=== PATIENT | female | born 1960 | race Caucasian/White ===

== ENCOUNTER 2020-10-08 09:25 | Outpatient (REF) | payer MEDICAID, SELFPAY ==
[2020-10-08 11:01] LABS: MANUAL DIFF FLAG NO
[2020-10-08 11:16] LABS: Basophils Absolute Auto 0.1 X10*3/uL (0.0-0.2); Basophils Percent Auto 1.5 % (0-2); Eosinophils Absolute Auto 0.2 X10*3/uL (0.0-0.4); Eosinophils Percent Auto 4.3 % (0-4); Hematocrit 44.2 % (37-47); Hemoglobin 14.4 g/dl (12.0-16.0); Imm Gran Abs Auto 0.02 X10*3/uL (0.00-0.03); Imm Gran Pct Auto 0.4 % (0.0-0.4); Lymphocytes Absolute Auto 1.1 X10*3/uL (1.2-4.9); Lymphocytes Percent Auto 23.1 % (20-40); Mean Corpuscular HGB Conc 32.6 g/dl (31.0-35.0); Mean Corpuscular Hemoglobin 28.5 pg (27.0-33.0); Mean Corpuscular Volume 87.5 fL (80-98); Mean Platelet Volume 10.1 fL (9.4-12.3); Monocytes Absolute Auto 0.4 X10*3/uL (0.1-1.2); Monocytes Percent Auto 8.3 % (2-11); Neutrophils Absolute Auto 2.9 X10*3/uL (2.0-8.3); Neutrophils Percent Auto 62.4 % (45-73); Platelet Count 279 X10*3/uL (160-400); Red Blood Count 5.05 X10*6/uL (4.20-5.50); Red Cell Distribution Width 13.7 % (11.0-16.0); White Blood Count 4.7 X10*3/uL (4.8-10.8)
[2020-10-08 11:20] LABS: INTERNATIONAL NORM RATIO 0.9 (0.9-1.1); Prothrombin Time 10.5 SEC (9.9-13.0)
[2020-10-08 11:23] LABS: Partial Thromboplastin Time 34.5 SEC (24.1-38.0)
[2020-10-08 11:37] LABS: Alanine Aminotransferase 22 U/L (0-31); Albumin Level 4.6 g/dL (3.5-5.0); Alkaline Phosphatase 67 U/L (39-117); Anion Gap 13 (12-20); Aspartate Amino Transferase 18 U/L (5-31); Bilirubin Total 0.4 mg/dL (0.0-1.0); Blood Urea Nitrogen 13 mg/dL (9-16); Calcium 9.7 mg/dL (8.4-10.2); Carbon Dioxide 27 mmol/L (22-29); Chloride 107 mmol/L (96-108); Estimated Glomerular Filt Rate > 60; Glucose Random 89 mg/dL (60-115); Sodium 142 mmol/L (135-145); Total Protein 7.2 g/dL (6.5-8.0)
[2020-10-08 11:56] LABS: TSH reflex Free T4 0.58 uIU/mL (0.32-4.0)
== END 2020-10-08 09:26 | disposition home or self-care (01) ==
LOC: HO.HMGCLDS 09:25
PROVIDERS: PCP Internal Medicine; Visit Provider Internal Medicine
DX: Z01.818 Encounter for other preprocedural examination (principal); I10 Essential (primary) hypertension; J44.9 Chronic obstructive pulmonary disease, unspecified; E03.8 Other specified hypothyroidism; Z85.038 Personal history of other malignant neoplasm of large intestine; Z96.642 Presence of left artificial hip joint
CPT/HCPCS: 36415; 80053; 82378; 84443; 85025; 85610; 85730

== ENCOUNTER 2021-04-03 13:30 | Outpatient (REF) | payer MEDICAID, SELFPAY ==
[2021-04-03 16:54] LABS: Alanine Aminotransferase 25 U/L (0-31); Albumin Level 4.7 g/dL (3.5-5.0); Alkaline Phosphatase 67 U/L (39-117); Anion Gap 12 (12-20); Aspartate Amino Transferase 22 U/L (5-31); Bilirubin Total 0.3 mg/dL (0.0-1.0); Blood Urea Nitrogen 11 mg/dL (9-16); Carbon Dioxide 30 mmol/L (22-29); Chloride 103 mmol/L (96-108); Estimated Glomerular Filt Rate > 60; Glucose Random 91 mg/dL (60-115); Potassium 3.9 mmol/L (3.3-5.1); Sodium 141 mmol/L (135-145); Total Protein 7.4 g/dL (6.5-8.0)
[2021-04-03 17:14] LABS: TSH reflex Free T4 1.83 uIU/mL (0.32-4.0)
[2021-04-04 08:21] LABS: LDL Cholesterol Direct 111 mg/dL (<100)
== END 2021-04-03 13:31 | disposition home or self-care (01) ==
LOC: HO.HMGCLDS 13:30
PROVIDERS: Visit Provider Internal Medicine
DX: Z00.01 Encounter for general adult medical examination with abnormal findings (principal); E03.8 Other specified hypothyroidism; F32.1 Major depressive disorder, single episode, moderate; I10 Essential (primary) hypertension; J44.9 Chronic obstructive pulmonary disease, unspecified
CPT/HCPCS: 36415; 80053; 83721; 84443

== ENCOUNTER 2021-09-27 09:04 | Outpatient (REF) | payer MEDICAID, SELFPAY ==
--- NOTE | ~2021-09-27 | XR_ITS ---
EXAMINATION: XR RIGHT SHOULDER AND RIGHT FOOT CLINICAL INFORMATION: Pain. COMPARISON: None TECHNIQUE: Right shoulder 4 views. Right foot 3 views. FINDINGS: Right Shoulder: The glenohumeral and AC joint spaces are maintained normal. There is no visible acute fracture, dislocation or subluxation seen. There is mild hypertrophic changes of the AC joint. No bony erosive changes. There is small superior acromial enthesophyte. The soft tissues are normal. Right Foot: There is no visible acute fracture, dislocation or subluxation. No bony erosive changes seen. The ankle mortise and subtalar joints are normal. XR/XR shoulder RT min 2V IMPRESSION: Small superior acromial enthesophyte. Mild hypertrophic changes of the right AC joint. No visible acute fracture or dislocation of right shoulder. Unremarkable right foot exam.
--- NOTE | ~2021-09-27 | XR_ITS ---
EXAMINATION: XR RIGHT SHOULDER AND RIGHT FOOT CLINICAL INFORMATION: Pain. COMPARISON: None TECHNIQUE: Right shoulder 4 views. Right foot 3 views. FINDINGS: Right Shoulder: The glenohumeral and AC joint spaces are maintained normal. There is no visible acute fracture, dislocation or subluxation seen. There is mild hypertrophic changes of the AC joint. No bony erosive changes. There is small superior acromial enthesophyte. The soft tissues are normal. Right Foot: There is no visible acute fracture, dislocation or subluxation. No bony erosive changes seen. The ankle mortise and subtalar joints are normal. XR/XR foot RT min 3V IMPRESSION: Small superior acromial enthesophyte. Mild hypertrophic changes of the right AC joint. No visible acute fracture or dislocation of right shoulder. Unremarkable right foot exam.
== END 2021-09-27 09:05 | disposition home or self-care (01) ==
LOC: HO.HMGCX 09:04
PROVIDERS: PCP Internal Medicine; Visit Provider Internal Medicine
DX: M25.511 Pain in right shoulder (principal); M79.671 Pain in right foot; R29.91 Unspecified symptoms and signs involving the musculoskeletal system
CPT/HCPCS: 73030; 73630

== ENCOUNTER 2022-06-04 14:31 | Outpatient (REF) | payer MEDICAID, SELFPAY ==
[2022-06-04 16:39] LABS: MANUAL DIFF FLAG NO
[2022-06-04 16:43] LABS: Basophils Absolute Auto 0.1 X10*3/uL (0.0-0.2); Basophils Percent Auto 1.6 % (0-2); Eosinophils Absolute Auto 0.2 X10*3/uL (0.0-0.4); Eosinophils Percent Auto 5.1 % (0-4); Hematocrit 43.4 % (37.0-47.0); Hemoglobin 14.4 g/dl (12.0-16.0); Imm Gran Abs Auto 0.01 X10*3/uL (0.00-0.03); Imm Gran Pct Auto 0.2 % (0.0-0.4); Lymphocytes Absolute Auto 1.1 X10*3/uL (1.2-4.9); Lymphocytes Percent Auto 25.3 % (20-40); Mean Corpuscular HGB Conc 33.2 g/dl (31.0-35.0); Mean Corpuscular Hemoglobin 29.1 pg (27.0-33.0); Mean Corpuscular Volume 87.9 fL (80.0-98.0); Mean Platelet Volume 10.1 fL (9.4-12.3); Monocytes Absolute Auto 0.4 X10*3/uL (0.1-1.2); Monocytes Percent Auto 8.5 % (2-11); Neutrophils Absolute Auto 2.7 x10*3/uL (2.0-8.3); Neutrophils Percent Auto 59.3 % (45-73); Platelet Count 273 X10*3/uL (160-400); Red Blood Count 4.94 X10*6/uL (4.20-5.50); Red Cell Distribution Width 13.4 % (11.0-16.0); White Blood Count 4.5 X10*3/uL (4.8-10.8)
[2022-06-04 17:16] LABS: Alanine Aminotransferase 14 U/L (0-31); Albumin Level 4.4 g/dL (3.5-5.0); Alkaline Phosphatase 59 U/L (39-117); Anion Gap 13 (12-20); Aspartate Amino Transferase 17 U/L (5-31); Bilirubin Total 0.2 mg/dL (0.0-1.0); Blood Urea Nitrogen 8 mg/dL (9-16); Calcium 9.4 mg/dL (8.4-10.2); Carbon Dioxide 29 mmol/L (22-29); Chloride 104 mmol/L (96-108); Cholesterol 243 mg/dL; Estimated Glomerular Filt Rate > 60; Glucose Fasting 82 mg/dL (60-99); HDL Cholesterol 78 mg/dL; LDL Cholesterol Calculated 134 mg/dl; Sodium 142 mmol/L (135-145); Total Protein 6.5 g/dL (6.5-8.0); Triglycerides 158 mg/dL
[2022-06-04 17:31] LABS: TSH reflex Free T4 4.69 uIU/mL (0.32-4.0)
[2022-06-04 18:04] LABS: Free T4 (Free Thyroxine) 1.06 ng/dL (0.71-1.85)
== END 2022-06-04 14:32 | disposition home or self-care (01) ==
LOC: HO.HMGCLDS 14:31
PROVIDERS: PCP Internal Medicine; Visit Provider Internal Medicine
DX: I10 Essential (primary) hypertension (principal); J44.9 Chronic obstructive pulmonary disease, unspecified; E03.8 Other specified hypothyroidism; R15.9 Full incontinence of feces
CPT/HCPCS: 36415; 80053; 80061; 84439; 84443; 85025

== ENCOUNTER 2022-09-23 08:59 | Outpatient (AMB) | payer MEDICAID, SELFPAY ==
[2022-09-23 09:05] VITALS: BP 132/70; PULSE 70; O2SAT 95; BMI 24.9
--- NOTE | 2022-09-23 09:05 | A.OFFPC_ITS ---
Vital Signs 09/23/22 09:05 Height 5 ft 6 in Weight 154 lb 4 oz BMI 24.9 BP 132/70 Blood Pressure Location Lt brachial Position Sitting Pulse 70 Pulse Source Pulse Oximeter Pulse Oximetry (%) 95 Oxygen Delivery Method Room Air Intake Visit Reasons: 6 Month follow up Allergies phenobarbital [PHENOBARBITAL] Allergy (Unknown, Verified 09/23/22 09:06) RASH, hives, rash Medication List - Last Reconciled 09/23/22 by Mukund Hinton MD albuterol sulfate 90 mcg/actuation (ProAir HFA) 2 puffs inhalation Q6H PRN 30 days fluticasone furoate-vilanterol 200-25 mcg/dose (Breo Ellipta) 1 inh inhalation DAILY 90 days ibuprofen 200 mg PO Q6H PRN levothyroxine 125 mcg PO DAILY 90 days lisinopril 20 mg PO DAILY 90 days Tobacco use date assessed: 09/23/22 Fall risk assessment: No Falls in past year Last assessed Fall Risk: 09/23/22 Dental Screening Dental Screen Date: 09/23/22 Did you have a dental visit in the last 12 months?: No Did you have a dental problem in the last 6 months where you did not have access to dental care?: No Was dental information given to patient?: No HPI 6 Month follow up HPI Details Patient is 62-year-old female came in today for her six-month follow-up appointment Hypertension: she is taking lisinopril 20 mg, patient is tolerating medication , blood pressure is well controlled Hypothyroidism: Patient is on levothyroxine 112 mcg she is to continue that. Due for TSH Asthma/COPD: Stable with Breo inhaler History of rectal and cervical cancer status post chemotherapy and radiation therapy patient goes to Dr Beltran yearly for follow-up colonoscopies through them. Patient have chronic rectal incontinence if she has to go out she has to? stop eating for 48 hours and take 2 Imodium before which makes her disable? Follow-up 6 months Paperwork filled for her disability [facility] Medical History COPD (chronic obstructive pulmonary disease) Hypertension, essential Surgical History History of ileostomy History of left hip replacement History of resection of rectum History of surgery History of total hysterectomy Ovarian mass, left Family History Father No problems noted. Mother Lymphoma Sister No problems noted. Sister No problems noted. Son No problems noted. Daughter No problems noted. Daughter No problems noted. Other Substance use disorder Social History Housing: Other (mobile home) Patient Tobacco Use Status: Current everyday Tobacco user Cigarette Packs Per Day: 0.5 e-Cigarette/Vaping Use: Never Used service: No Current occupational status: retired Cognitive needs: No Hearing needs: No Vision needs: Yes Questionnaire PHQ-9 Over the last 2 weeks, how often have you been bothered by any of the following problems? 1. Little interest or pleasure in doing things: nearly every day 2. Feeling down, depressed, or hopeless: nearly every day 3. Trouble falling or staying asleep, or sleeping too much: more than half the days 4. Feeling tired or having little energy: nearly every day 5. Poor appetite or overeating: several days 6. Feeling bad about yourself - or that you are a failure or have let yourself or your family down: nearly every day 7. Trouble concentrating on things, such as reading the newspaper or watching television: nearly every day 8. Moving or speaking so slowly that other people could have noticed. Or the opposite - being so fidgety or restless that you have been moving around a lot more than usual: not at all 9. Thoughts that you would be better off or of hurting yourself in some way: not at all Total score: 18 Depression Screening Interpretation: Positive 53450 - PHQ-9 Billing: Yes Source: Developed by Drs. Cory Ochoa, Diya Alicia, Virgil Lion and colleagues, with an educational ara from [employer]. Thrive Questionnaire Date Thrive assessed: 09/23/22 I am a: Patient What is your living situation today?: I have a steady place to live Within the past 12 months, did the food you bought not last and you didn't have the money to get more?: Never true Within the past 12 months, did you worry whether your food would run out before you got money to buy more?: Never true Do you have trouble paying for medicines?: No Do you have trouble getting transportation to medical appointments?: No Do you have trouble paying your heating and electricity bill?: No Do you have trouble taking care of your child, family member or friend?: No Do you have trouble with day-to-day activities such as bathing, preparing meals, shopping, managing finances, etc.?: No Are you currently unemployed and looking for a job?: No Are you interested in more education?: No AUDIT C Alcohol Use Questionnaire (AUDIT-C) 1. How often do you have a drink containing alcohol?: Never 3. How often do you have six or more drinks on one occasion?: Never Total Score: 0 Score Reviewed/Action Taken: Yes ADAM-7 AMB Questionnaire ADAM-7 Date ADAM - 7 assessed: 09/23/22 Feeling nervous, anxious, or on edge: 1 = Several days Not being able to stop or control worryin = More than half the days Worrying too much about different things: 2 = More than half the days Trouble relaxin = Not at all Being so restless that it is hard to sit still: 0 = Not at all Becoming easily annoyed or irritable: 0 = Not at all Feeling afraid as if something awful might happen: 0 = Not at all Total ADAM-7 score (0-4 normal; 5-9 mild; 10-14 moderate; 15-21 severe): 5 Source: Developed by Drs. Cory Ochoa, Diya Alicia, Virgil Lion and colleagues, with an educational ara from [employer]. ADAM-7 Assessment Billing ADAM-7 Assessment Tool: ADAM-7 Assessment 76954 Review of Systems Const Denies chills and Denies fever(s) ENT Denies epistaxis and Denies nasal discharge Card Denies chest pain Resp Denies chest congestion, Denies cough and Denies hemoptysis GI Denies diarrhea and Denies nausea Skin/Breast Denies rash Neuro Reports no additional complaints Psych Reports no additional complaints Endo Reports no additional complaints Physical exam (Primary Care) Vital Signs: Last Vital Signs Pulse 70 09/23/22 09:05 BP 132/70 09/23/22 09:05 Pulse Ox 95 09/23/22 09:05 Oxygen Delivery Method Room Air 09/23/22 09:05 BMI result Body Mass Index 24.9 Tobacco/Smoking Status: Tobacco use Status Tobacco use date assessed 09/23/22 09/23/22 09:06 Patient Tobacco Use Status Current everyday Tobacco 09/23/22 09:06 e-Cigarette/Vaping Use Never Used 09/23/22 09:06 PHQ-9: PHQ-9 Score PHQ-9: Total score 18 09/23/22 09:49 Depression Screening Interpretation: Positive Thrive Assessment: Date of Thrive Assessment Date Thrive assessed 09/23/22 09/23/22 09:49 Const General: cooperative, comfortable and no acute distress Orientation/consciousness: patient oriented x3 HENMT Head: Yes normocephalic Eyes General: appearance normal, both eyes and all related structures Neck Neck: Yes supple Resp Effort & Inspection: normal respiratory effort, no cough and no stridor Cardio Rhythm: regular rhythm Heart sounds: S1 normal heart sound present and S2 normal heart sound present Skin General skin exam: turgor normal Neuro General: patient oriented x3, tone normal and moves all extremities Extrem Right lower extremity: no edema Left lower extremity: no edema Assessment and Plan Assessment & Plan (1) Hypertension, essential: Code(s): I10 - Essential (primary) hypertension (2) COPD (chronic obstructive pulmonary disease): Code(s): J44.9 - Chronic obstructive pulmonary disease, unspecified (3) Other specified hypothyroidism: Code(s): E03.8 - Other specified hypothyroidism (4) Rectal incontinence: Code(s): R15.9 - Full incontinence of feces (5) Anal sphincter incompetence: Code(s): 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 Due for TSH Asthma/COPD: Stable with Breo inhaler History of rectal and cervical cancer status post chemotherapy and radiation therapy patient goes to Dr Beltran yearly for follow-up colonoscopies through them. Patient have chronic rectal incontinence if she has to go out she has to? stop eating for 48 hours and take 2 Imodium before which makes her disable? Follow-up 6 months Paperwork filled for her disability Orders: Orders Comprehensive [place]. Panel Fast 6 Months E03.8 - Other specified hypothyroidism, I10 - Essential (primary) hypertension, J44.9 - Chronic obstructive pulmonary disease, unspecified, R15.9 - Full incontinence of feces TSH reflex Free T4 6 Months E03.8 - Other specified hypothyroidism, I10 - Essential (primary) hypertension, J44.9 - Chronic obstructive pulmonary disease, unspecified, R15.9 - Full incontinence of feces Complete Blood Count Auto Diff 6 Months E03.8 - Other specified hypothyroidism, I10 - Essential (primary) hypertension, J44.9 - Chronic obstructive pulmonary disease, unspecified, R15.9 - Full incontinence of feces Coding Level of Care Code Est Pt Level 4 (72113) Diagnoses Hypertension, essential I10 COPD (chronic obstructive pulmonary disease) J44.9 Other specified hypothyroidism E03.8 Rectal incontinence R15.9 Anal sphincter incompetence K62.89 Additional Codes ADAM-7 Assessment Billing - ADAM-7 Assessment Tool: ADAM-7 Assessment [id number] ([id number])
== END 2022-09-23 09:44 | disposition home or self-care (01) ==
PROVIDERS: PCP Internal Medicine; Visit Provider Internal Medicine
DX: I10 Essential (primary) hypertension (principal); J44.9 Chronic obstructive pulmonary disease, unspecified; E03.8 Other specified hypothyroidism; R15.9 Full incontinence of feces; K62.89 Other specified diseases of anus and rectum
CPT/HCPCS: 99214

== ENCOUNTER 2023-09-11 08:55 | Outpatient (REF) | payer MEDICARE, SELFPAY ==
[2023-09-11 10:01] LABS: MANUAL DIFF FLAG NO
[2023-09-11 10:18] LABS: Basophils Absolute Auto 0.1 X10*3/uL (0.0-0.2); Basophils Percent Auto 2.3 % (0-2); Eosinophils Absolute Auto 0.3 X10*3/uL (0.0-0.4); Eosinophils Percent Auto 7.2 % (0-4); Hematocrit 43.8 % (37.0-47.0); Hemoglobin 14.5 g/dl (12.0-16.0); Imm Gran Abs Auto 0.02 X10*3/uL (0.00-0.03); Imm Gran Pct Auto 0.5 % (0.0-0.4); Lymphocytes Absolute Auto 1.3 X10*3/uL (1.2-4.9); Mean Corpuscular HGB Conc 33.1 g/dl (31.0-35.0); Mean Corpuscular Hemoglobin 28.9 pg (27.0-33.0); Mean Corpuscular Volume 87.4 fL (80.0-98.0); Monocytes Absolute Auto 0.4 X10*3/uL (0.1-1.2); Monocytes Percent Auto 8.8 % (2-11); Neutrophils Absolute Auto 2.2 x10*3/uL (2.0-8.3); Neutrophils Percent Auto 51.2 % (45-73); Platelet Count 276 X10*3/uL (160-400); Red Blood Count 5.01 X10*6/uL (4.20-5.50); Red Cell Distribution Width 14.1 % (11.0-16.0); White Blood Count 4.3 X10*3/uL (4.8-10.8)
[2023-09-11 10:39] LABS: Alanine Aminotransferase 22 U/L (0-31); Albumin Level 4.5 g/dL (3.5-5.0); Alkaline Phosphatase 60 U/L (39-117); Anion Gap 11 (12-20); Aspartate Amino Transferase 19 U/L (5-31); Bilirubin Total 0.4 mg/dL (0.0-1.0); Blood Urea Nitrogen 12 mg/dL (9-16); Calcium 9.4 mg/dL (8.4-10.2); Carbon Dioxide 29 mmol/L (22-29); Chloride 106 mmol/L (96-108); Cholesterol 201 mg/dL (<200); Estimated Glomerular Filt Rate > 60; Glucose Fasting 97 mg/dL (60-99); HDL Cholesterol 89 mg/dL (>40); LDL Cholesterol Calculated 99 mg/dL (<100); Sodium 142 mmol/L (135-145); Total Protein 7.1 g/dL (6.5-8.0); Triglycerides 66 mg/dL (<150)
[2023-09-11 10:57] LABS: TSH reflex Free T4 1.24 uIU/mL (0.32-4.0)
== END 2023-09-11 08:56 | disposition home or self-care (01) ==
LOC: HO.HMGCLDS 08:55
PROVIDERS: PCP Internal Medicine; Visit Provider Internal Medicine
DX: I10 Essential (primary) hypertension (principal); J44.9 Chronic obstructive pulmonary disease, unspecified; E03.8 Other specified hypothyroidism; R15.9 Full incontinence of feces
CPT/HCPCS: 36415; 80053; 80061; 84443; 85025

== ENCOUNTER 2023-09-18 14:43 | Outpatient (AMB) | payer MEDICARE, SELFPAY ==
[2023-09-18 14:48] VITALS: BP 156/98; PULSE 79; O2SAT 96; BMI 25.0
--- NOTE | 2023-09-18 14:48 | MHC.PC.OV ---
Vital Signs 09/18/23 14:48 Height 5 ft 6 in Weight 155 lb BMI 25.0 BP 156/98 H Blood Pressure Location Lt brachial Position Sitting Pulse 79 Pulse Source Pulse Oximeter Pulse Oximetry (%) 96 Oxygen Delivery Method Room Air Intake Visit Reasons: follow up Allergies phenobarbital [PHENOBARBITAL] Allergy (Unknown, Verified 09/23/22 09:06) RASH, hives, rash Medication List - Last Reconciled 09/18/23 by Mukund Hinton MD albuterol sulfate 90 mcg/actuation 2 puffs inhalation Q6H PRN 30 days fluticasone furoate-vilanterol 200-25 mcg/dose (Breo Ellipta) 1 inh inhalation DAILY 90 days ibuprofen 200 mg PO Q6H PRN levothyroxine 125 mcg PO DAILY 90 days lisinopril 20 mg PO DAILY 90 days Tobacco use date assessed: 09/23/22 Dental Screening Dental Screen Date: 09/23/22 HPI follow up HPI Details Patient is 63-year-old female who was last seen September of last year came in today for follow-up appointment She is taking lisinopril 20 mg, blood pressure is 156/98 She is not monitoring blood pressure at home so I do not know what has been happening for the past 1 year Patient was advised to come in for follow-up appointments, 1 year is a very long time without monitoring the side effect of medication I am increasing the dose to 30 mg lisinopril She also continued to smoke 1 pack per day Patient is on Breo inhaler which is helping but not enough In the afternoon she tells me that she starts getting short of breath and then she has to use albuterol inhaler She is also requesting Chantix prescription which I have sent for her I am also adding Spiriva she is to start taking that And come in in 3 weeks for follow-up appointment on blood pressure as well as Chantix She want UA done today as patient feels as if she is developing a urinary tract infection UA is negative for UTI [facility] Medical History COPD (chronic obstructive pulmonary disease) Hypertension, essential Surgical History History of left hip replacement History of ileostomy History of resection of rectum History of surgery Ovarian mass, left History of total hysterectomy Family History Father No problems noted. Mother Lymphoma Sister No problems noted. Sister No problems noted. Son No problems noted. Daughter No problems noted. Daughter No problems noted. Other Substance use disorder Social History Housing: Other (mobile home) Patient Tobacco Use Status: Current everyday Tobacco user Cigarette Packs Per Day: 0.5 e-Cigarette/Vaping Use: Never Used service: No Current occupational status: retired Cognitive needs: No Hearing needs: No Vision needs: Yes Questionnaire Thrive Questionnaire Date Thrive assessed: 09/23/22 ADAM-7 AMB Questionnaire ADAM-7 Date ADAM - 7 assessed: 09/23/22 Source: Developed by Drs. Cory Ochoa, Diya Alicia, Virgil Lion and colleagues, with an educational ara from [email or web address]. Review of Systems Const Denies chills and Denies fever(s) ENT Denies epistaxis and Denies nasal discharge Card Denies chest pain Resp Denies hemoptysis GI Denies diarrhea and Denies nausea Skin/Breast Denies rash Neuro Reports no additional complaints Psych Reports no additional complaints Endo Reports no additional complaints Physical exam (Primary Care) Vital Signs: Last Vital Signs Pulse 79 09/18/23 14:48 BP 156/98 H 09/18/23 14:48 Pulse Ox 96 09/18/23 14:48 Oxygen Delivery Method Room Air 09/18/23 14:48 BMI result Body Mass Index 25.0 Tobacco/Smoking Status: Tobacco use Status Tobacco use date assessed 09/23/22 09/18/23 14:50 Patient Tobacco Use Status Current everyday Tobacco 09/18/23 14:50 e-Cigarette/Vaping Use Never Used 09/18/23 14:50 Thrive Assessment: Date of Thrive Assessment Date Thrive assessed 09/23/22 09/18/23 14:50 Const General: cooperative, comfortable and no acute distress Orientation/consciousness: patient oriented x3 HENMT Head: Yes normocephalic Eyes General: appearance normal, both eyes and all related structures Neck Neck: Yes supple Resp Effort & Inspection: normal respiratory effort, no cough and no stridor Cardio Rhythm: regular rhythm Heart sounds: S1 normal heart sound present and S2 normal heart sound present Skin General skin exam: turgor normal Neuro General: patient oriented x3, tone normal and moves all extremities Extrem Right lower extremity: no edema Left lower extremity: no edema Assessment and Plan Assessment & Plan (1) Shortness of breath: Code(s): R06.02 - Shortness of breath (2) Hypertension, essential: Code(s): I10 - Essential (primary) hypertension (3) COPD (chronic obstructive pulmonary disease): Code(s): J44.9 - Chronic obstructive pulmonary disease, unspecified Qualifiers: COPD type: unspecified COPD Qualified Code(s): J44.9 - Chronic obstructive pulmonary disease, unspecified (4) Dysuria: Code(s): R30.0 - Dysuria (5) Other specified hypothyroidism: Code(s): E03.8 - Other specified hypothyroidism (6) On Chantix therapy: Code(s): Z79.899 - Other terminal block assembler (current) drug therapy Plan Patient is 63-year-old female who was last seen September of last year came in today for follow-up appointment She is taking lisinopril 20 mg, blood pressure is 156/98 She is not monitoring blood pressure at home so I do not know what has been happening for the past 1 year Patient was advised to come in for follow-up appointments, 1 year is a very long time without monitoring the side effect of medication I am increasing the dose to 30 mg lisinopril She also continued to smoke 1 pack per day Patient is on Breo inhaler which is helping but not enough In the afternoon she tells me that she starts getting short of breath and then she has to use albuterol inhaler She is also requesting Chantix prescription which I have sent for her I am also adding Spiriva she is to start taking that And come in in 3 weeks for follow-up appointment on blood pressure as well as Chantix She want UA done today as patient feels as if she is developing a urinary tract infection UA is negative for UTI Medications: New tiotropium bromide 2.5 mcg/actuation (Spiriva Respimat) 2 inhalations inhalation QAM 4 grams 0RF varenicline (Chantix Starting Month Box) PO PER PKG DIR 53 ea 0RF Changed From lisinopril 20 mg PO DAILY 90 days 90 tabs 0RF To lisinopril 30 mg PO DAILY 90 tabs 0RF 90 days Coding Level of Care Code Est Pt Level 4 (06699) Complex EM visit Add On G2211 Diagnoses Shortness of breath R06.02 Hypertension, essential I10 Chronic obstructive pulmonary disease, unspecified COPD type J44.9 COPD type: unspecified COPD Dysuria R30.0 Other specified hypothyroidism E03.8 On Chantix therapy Z79.899
== END 2023-09-18 15:25 | disposition home or self-care (01) ==
PROVIDERS: PCP Internal Medicine; Visit Provider Internal Medicine
DX: R06.02 Shortness of breath (principal); I10 Essential (primary) hypertension; J44.9 Chronic obstructive pulmonary disease, unspecified; R30.0 Dysuria; E03.8 Other specified hypothyroidism; Z79.899 Other long term (current) drug therapy
CPT/HCPCS: 99214; G2211

== ENCOUNTER 2023-10-16 12:37 | Outpatient (AMB) | payer MEDICARE, SELFPAY ==
[2023-10-16 12:44] VITALS: BP 126/78; PULSE 72; O2SAT 98; BMI 25.5
--- NOTE | 2023-10-16 12:44 | MHC.PC.OV ---
Vital Signs 10/16/23 12:44 Height 5 ft 6 in Weight 158 lb 2 oz BMI 25.5 BP 126/78 Blood Pressure Location Lt brachial Position Sitting Pulse 72 Pulse Source Pulse Oximeter Pulse Oximetry (%) 98 Oxygen Delivery Method Room Air Intake Visit Reasons: FollowUp Allergies phenobarbital [PHENOBARBITAL] Allergy (Unknown, Verified 10/16/23 12:48) RASH, hives, rash Medication List - Last Reconciled 10/16/23 by Mukund Hinton MD albuterol sulfate 90 mcg/actuation 2 puffs inhalation Q6H PRN 30 days fluticasone furoate-vilanterol 200-25 mcg/dose (Breo Ellipta) 1 inh inhalation DAILY 90 days ibuprofen 200 mg PO Q6H PRN levothyroxine 125 mcg PO DAILY 90 days lisinopril 30 mg PO DAILY 90 days umeclidinium 62.5 mcg/actuation (Incruse Ellipta) 1 inh inhalation BEDTIME Tobacco use date assessed: 10/16/23 Fall risk assessment: No Falls in past year Last assessed Fall Risk: 10/16/23 Dental Screening Dental Screen Date: 10/16/23 Did you have a dental visit in the last 12 months?: Yes Did you have a dental problem in the last 6 months where you did not have access to dental care?: No Was dental information given to patient?: Patient has dentist HPI FollowUp HPI Details Patient came in today for follow-up appointment She is feeling much better with Breo and Incruse Ellipta combination Her breathing is more free, no more wheezing She tried Chantix but could not tolerate it due to side effects of flu-like feeling and abdominal symptoms So she stopped it But she is down to 3 cigarettes and she will continue to work on that Patient has a history of colon resection and after that she has developed recurrent diarrhea She had to stop working, she is on disability, she brought in her paperwork to fill for that which I did. With increased dose of lisinopril her blood pressure is very well-controlled she is tolerating medication Labs done recently reviewed as well She will return in 4 months for follow-up appointment [facility] Medical History COPD (chronic obstructive pulmonary disease) Hypertension, essential Surgical History History of left hip replacement History of ileostomy History of resection of rectum History of surgery Ovarian mass, left History of total hysterectomy Family History Father No problems noted. Mother Lymphoma Sister No problems noted. Sister No problems noted. Son No problems noted. Daughter No problems noted. Daughter No problems noted. Other Substance use disorder Social History Housing: Other (mobile home) Patient Tobacco Use Status: Current someday Tobacco user Cigarette Packs Per Day: 0.5 e-Cigarette/Vaping Use: Never Used service: No Current occupational status: retired Cognitive needs: No Hearing needs: No Vision needs: Yes Questionnaire Thrive Questionnaire Date Thrive assessed: 10/16/23 I am a: Patient What is your living situation today?: I have a steady place to live Within the past 12 months, did the food you bought not last and you didn't have the money to get more?: Never true Within the past 12 months, did you worry whether your food would run out before you got money to buy more?: Never true Do you have trouble paying for medicines?: No Do you have trouble getting transportation to medical appointments?: No Do you have trouble paying your heating and electricity bill?: No Do you have trouble taking care of your child, family member or friend?: No Do you have trouble with day-to-day activities such as bathing, preparing meals, shopping, managing finances, etc.?: No Are you currently unemployed and looking for a job?: No Are you interested in more education?: No Currently or been in a relationship where the following occur: No concerns reported THRIVE Score: 0 AUDIT C Alcohol Use Questionnaire (AUDIT-C) 1. How often do you have a drink containing alcohol?: Monthly or less 2. How many drinks containing alcohol do you have on a typical day when you are drinking?: 1 or 2 3. How often do you have six or more drinks on one occasion?: Never Total Score: 1 Score Reviewed/Action Taken: Yes ADAM-7 AMB Questionnaire ADAM-7 Date ADAM - 7 assessed: 10/16/23 Feeling nervous, anxious, or on edge: 0 = Not at all Not being able to stop or control worryin = Not at all Worrying too much about different things: 0 = Not at all Trouble relaxin = Not at all Being so restless that it is hard to sit still: 0 = Not at all Becoming easily annoyed or irritable: 0 = Not at all Feeling afraid as if something awful might happen: 0 = Not at all Total ADAM-7 score (0-4 normal; 5-9 mild; 10-14 moderate; 15-21 severe): 0 Source: Developed by Drs. Cory Ochoa, Diya Alicia, Virgil Lion and colleagues, with an educational ara from [employer]. ADAM-7 Assessment Billing ADAM-7 Assessment Tool: ADAM-7 Assessment 00740 Review of Systems Const Denies chills and Denies fever(s) ENT Denies epistaxis and Denies nasal discharge Card Denies chest pain Resp Denies chest congestion, Denies cough and Denies hemoptysis GI Denies diarrhea and Denies nausea Skin/Breast Denies rash Neuro Reports no additional complaints Psych Reports no additional complaints Endo Reports no additional complaints Physical exam (Primary Care) Vital Signs: Last Vital Signs Pulse 72 10/16/23 12:44 BP 126/78 10/16/23 12:44 Pulse Ox 98 10/16/23 12:44 Oxygen Delivery Method Room Air 10/16/23 12:44 BMI result Body Mass Index 25.5 Tobacco/Smoking Status: Tobacco use Status Tobacco use date assessed 10/16/23 10/16/23 12:49 Patient Tobacco Use Status Current someday Tobacco 10/16/23 12:49 e-Cigarette/Vaping Use Never Used 10/16/23 12:49 Thrive Assessment: Date of Thrive Assessment Date Thrive assessed 10/16/23 10/16/23 12:49 Currently or been in a relationship where the following occur: No concerns reported Const General: cooperative, comfortable and no acute distress Orientation/consciousness: patient oriented x3 HENMT Head: Yes normocephalic Eyes General: appearance normal, both eyes and all related structures Neck Neck: Yes supple Resp Effort & Inspection: normal respiratory effort, no cough and no stridor Cardio Rhythm: regular rhythm Heart sounds: S1 normal heart sound present and S2 normal heart sound present Skin General skin exam: turgor normal Neuro General: patient oriented x3, tone normal and moves all extremities Extrem Right lower extremity: no edema Left lower extremity: no edema Assessment and Plan Assessment & Plan (1) Hypertension, essential: Code(s): I10 - Essential (primary) hypertension (2) COPD (chronic obstructive pulmonary disease): Code(s): J44.9 - Chronic obstructive pulmonary disease, unspecified Qualifiers: COPD type: unspecified COPD Qualified Code(s): J44.9 - Chronic obstructive pulmonary disease, unspecified (3) Other specified hypothyroidism: Code(s): E03.8 - Other specified hypothyroidism (4) Rectal incontinence: Code(s): R15.9 - Full incontinence of feces Qualifiers: Fecal incontinence type: fecal smearing Qualified Code(s): R15.1 - Fecal smearing Plan Patient came in today for follow-up appointment She is feeling much better with Breo and Incruse Ellipta combination Her breathing is more free, no more wheezing She tried Chantix but could not tolerate it due to side effects of flu-like feeling and abdominal symptoms So she stopped it But she is down to 3 cigarettes and she will continue to work on that Patient has a history of colon resection and after that she has developed recurrent diarrhea She had to stop working, she is on disability, she brought in her paperwork to fill for that which I did. With increased dose of lisinopril her blood pressure is very well-controlled she is tolerating medication Labs done recently reviewed as well She will return in 4 months for follow-up appointment Coding Level of Care Code Est Pt Level 4 (05470) Diagnoses Hypertension, essential I10 Chronic obstructive pulmonary disease, unspecified COPD type J44.9 COPD type: unspecified COPD Other specified hypothyroidism E03.8 Fecal smearing R15.1 Fecal incontinence type: fecal smearing Additional Codes ADAM-7 Assessment Billing - ADAM-7 Assessment Tool: ADAM-7 Assessment 09039 ([id number])
== END 2023-10-16 13:49 | disposition home or self-care (01) ==
PROVIDERS: PCP Internal Medicine; Visit Provider Internal Medicine
DX: I10 Essential (primary) hypertension (principal); J44.9 Chronic obstructive pulmonary disease, unspecified; E03.8 Other specified hypothyroidism; R15.1 Fecal smearing
CPT/HCPCS: 99214

== ENCOUNTER 2024-04-05 13:35 | Outpatient (REF) | payer MEDICARE, SELFPAY ==
[2024-04-05 16:10] LABS: MANUAL DIFF FLAG NO
[2024-04-05 16:15] LABS: Basophils Absolute Auto 0.1 X10*3/uL (0.0-0.2); Basophils Percent Auto 2.1 % (0-2); Eosinophils Absolute Auto 0.3 X10*3/uL (0.0-0.4); Eosinophils Percent Auto 4.3 % (0-4); Hematocrit 44.3 % (37.0-47.0); Hemoglobin 14.9 g/dl (12.0-16.0); Imm Gran Abs Auto 0.03 X10*3/uL (0.00-0.03); Imm Gran Pct Auto 0.5 % (0.0-0.4); Lymphocytes Absolute Auto 1.5 X10*3/uL (1.2-4.9); Lymphocytes Percent Auto 26.4 % (20-40); Mean Corpuscular HGB Conc 33.6 g/dl (31.0-35.0); Mean Corpuscular Hemoglobin 29.2 pg (27.0-33.0); Mean Corpuscular Volume 86.7 fL (80.0-98.0); Mean Platelet Volume 9.9 fL (9.4-12.3); Monocytes Absolute Auto 0.5 X10*3/uL (0.1-1.2); Monocytes Percent Auto 9.1 % (2-11); Neutrophils Absolute Auto 3.3 x10*3/uL (2.0-8.3); Neutrophils Percent Auto 57.6 % (45-73); Platelet Count 305 X10*3/uL (160-400); Red Blood Count 5.11 X10*6/uL (4.20-5.50); Red Cell Distribution Width 13.7 % (11.0-16.0); White Blood Count 5.8 X10*3/uL (4.8-10.8)
[2024-04-05 17:21] LABS: Alanine Aminotransferase 31 U/L (0-31); Albumin Level 4.4 g/dL (3.5-5.0); Alkaline Phosphatase 66 U/L (39-117); Anion Gap 13 (12-20); Aspartate Amino Transferase 26 U/L (5-31); Bilirubin Total 0.3 mg/dL (0.0-1.0); Blood Urea Nitrogen 12 mg/dL (9-16); Calcium 9.4 mg/dL (8.4-10.2); Carbon Dioxide 26 mmol/L (22-29); Chloride 107 mmol/L (96-108); Estimated Glomerular Filt Rate > 60; Glucose Random 80 mg/dL (60-115); Magnesium 2.5 mg/dL (1.6-2.6); Sodium 142 mmol/L (135-145); TSH reflex Free T4 0.79 uIU/mL (0.32-4.0); Total Protein 7.6 g/dL (6.5-8.0); Vitamin B12 376 pg/mL (200-900)
[2024-04-06 15:08] LABS: LDL Cholesterol Direct 114 mg/dL (<100)
[2024-04-09 01:54] LABS: Vitamin D 25-OH, D2 <4 ng/mL; Vitamin D 25-OH, D3 19 ng/mL; Vitamin D 25-OH, Total 19 ng/mL (30-100)
== END 2024-04-05 13:36 | disposition home or self-care (01) ==
LOC: HO.HMGCLDS 13:35
PROVIDERS: PCP Internal Medicine; Visit Provider Internal Medicine
DX: F32.1 Major depressive disorder, single episode, moderate (principal); I10 Essential (primary) hypertension; J44.9 Chronic obstructive pulmonary disease, unspecified; E03.8 Other specified hypothyroidism; K21.9 Gastro-esophageal reflux disease without esophagitis; Z72.0 Tobacco use; Z71.6 Tobacco abuse counseling; Z79.899 Other long term (current) drug therapy
CPT/HCPCS: 36415; 80053; 82306; 82607; 83721; 83735; 84443; 85025; 99212

== ENCOUNTER 2024-04-05 13:35 | Outpatient (AMB) | payer MEDICARE, SELFPAY ==
[2024-04-05 13:36] VITALS: BP 128/78; PULSE 67; RESP 16; O2SAT 96; BMI 26.8
--- NOTE | 2024-04-05 13:36 | A.OFFPC_ITS ---
Vital Signs 04/05/24 13:36 Height 5 ft 6 in Weight 166 lb BMI 26.8 BP 128/78 Blood Pressure Location Rt brachial Position Sitting Respiration 16 Pulse 67 Pulse Source Pulse Oximeter Pulse Oximetry (%) 96 Oxygen Delivery Method Room Air Intake Visit Reasons: Medication refill Allergies phenobarbital [PHENOBARBITAL] Allergy (Unknown, Verified 04/05/24 13:36) RASH, hives, rash Medication List - Last Reconciled 04/05/24 by Mukund Hinton MD albuterol sulfate 90 mcg/actuation 2 puffs inhalation Q6H PRN 30 days fluticasone furoate-vilanterol 200-25 mcg/dose (Breo Ellipta) 1 inh inhalation DAILY 90 days ibuprofen 200 mg PO Q6H PRN levothyroxine 125 mcg PO DAILY 90 days lisinopril 30 mg PO DAILY 90 days omeprazole 20 mg PO DAILY umeclidinium 62.5 mcg/actuation (Incruse Ellipta) 1 inh inhalation BEDTIME Tobacco use date assessed: 04/05/24 Fall risk assessment: No Falls in past year Last assessed Fall Risk: 04/05/24 Dental Screening Dental Screen Date: 04/05/24 Did you have a dental visit in the last 12 months?: Yes Did you have a dental problem in the last 6 months where you did not have access to dental care?: No Was dental information given to patient?: Patient has dentist HPI Medication refill HPI Details History - The patient is a 63-year-old female pr esenting with medication management concerns and depressive symptoms. She voiced issues regarding her inhalers for COPD, expressing that the m edication was not effective, and explained her misunderstanding regarding the use of multiple inhalers. Her prescribed Breo had not been utilized as directed. She is supposed to be on Breo once a day and Incruse Ellipta once a day, explained to her why she is taking 2 inhalers Hypertension: Blood pressure is stable patient is taking lisinopril 30 mg tolerating medication no side effects - Depression was characterized by notabl e changes in interest and motivation, impacting activities she previously found enjoyable and urgent concerns from her family prompted further exploration of her mood changes. Patient is interested in starting medication, Lexapro 10 mg sent patient is to start with half a tablet for a week and then full tablet We will set up telemedicine visit in 1 month to follow up on that - The last laboratory tests were conduct ed in September, showing acceptable parameters, due for labs to be done today GERD is stable with omeprazole Continued to smoke half a pack per day once again patient was instructed to stop as soon as possible and if she needs assistance she is to let me know Hypothyroidism: Continue levothyroxine 125 mcg Problem List - Chronic Obstructive Pulmonary Disease (COPD) - Essential Hypertension - Gastroesophageal Reflux Disease - Hypothyroidism - Depression Patient Instructions - Use both inhalers as prescribed [facility], as they contain different medicines that can work effectively together. - Continue to use the rescue inhaler as needed for acute symptoms. - Keep taking levothyroxine, lisinopril, and omeprazole as prescribed. - Follow the instructions to set up an [employer] patient portal for better communication and access to health records. - Make sure to have blood work done as s oon as possible - Begin the prescribed medication for de pression and monitor for improved mood and increased activity engagement. - I will follow up in four weeks with a telephone visit to review progress and any concerns regarding the new medication. Review of Systems - Neurological: No headaches no dizziness - Ear nose throat: No sore throat no hearing difficulty no ear pain - Cardiovascular: No syncope, no chest pain, no palpitations - Gastrointestinal: No nausea vomiting or diarrhea - Endocrine: No polyuria polydipsia no heat intolerance - Genitourinary: No dysuria , no blood in urine Physical Exam - General: No acute distress - HEENT: No acute findings - Neck: Supple - Respiratory system: Able to talk in f ull sentences, no audible wheeze - cardiovascular: S1-S2 regular in rat e and rhythm - Gastrointestinal: No pain - Extremities: No new findings - SENIOR STATISTICIAN: Alert awake oriented x3 motor se nsory intact - Skin: Normal turgor [facility] Medical History COPD (chronic obstructive pulmonary disease) Hypertension, essential Surgical History History of left hip replacement History of ileostomy History of resection of rectum History of surgery Ovarian mass, left History of total hysterectomy Family History Father No problems noted. Mother Lymphoma Sister No problems noted. Sister No problems noted. Son No problems noted. Daughter No problems noted. Daughter No problems noted. Other Substance use disorder Social History Housing: Other (mobile home) Patient Tobacco Use Status: Current someday Tobacco user Cigarette Packs Per Day: 0.5 e-Cigarette/Vaping Use: Never Used service: No Current occupational status: retired Cognitive needs: No Hearing needs: No Vision needs: Yes Questionnaire Thrive Questionnaire Date Thrive assessed: 10/16/23 ADAM-7 AMB Questionnaire ADAM-7 Date ADAM - 7 assessed: 10/16/23 Source: Developed by Drs. Cory Ochoa, Diya Alicia, Virgil Lion and colleagues, with an educational ara from [employer]. Physical exam (Primary Care) Vital Signs: Last Vital Signs Pulse 67 04/05/24 13:36 Resp 16 04/05/24 13:36 BP 128/78 04/05/24 13:36 Pulse Ox 96 04/05/24 13:36 Oxygen Delivery Method Room Air 04/05/24 13:36 BMI result Body Mass Index 26.8 Tobacco/Smoking Status: Tobacco use Status Tobacco use date assessed 04/05/24 04/05/24 13:43 Patient Tobacco Use Status Current someday Tobacco 04/05/24 13:43 e-Cigarette/Vaping Use Never Used 04/05/24 13:43 Are you ready to quit: No Tobacco cessation counseling provided: Yes Relapse Prevention: discussed the importance of a supportive environment CPT code: 17392 - 4-10 Minutes Thrive Assessment: Date of Thrive Assessment Date Thrive assessed 10/16/23 04/05/24 13:43 Coding Level of Care Code Est Pt Level 4 (84382) Complex EM visit Add On G2211 Diagnoses Depression, major, single episode, moderate F32.1 Hypertension, essential I10 Chronic obstructive pulmonary disease, unspecified COPD type J44.9 COPD type: unspecified COPD Other specified hypothyroidism E03.8 Chronic GERD K21.9 Tobacco abuse Z72.0 Tobacco abuse counseling Z71.6 Additional Codes Vital Signs *Quality* - CPT code: 31248 - 4-10 Minutes ([id number]) Assessment & Plan Assessment & Plan (1) Depression, major, single episode, moderate: Code(s): F32.1 - Major depressive disorder, single episode, moderate Category: Medical (2) Hypertension, essential: Code(s): I10 - Essential (primary) hypertension Category: Medical (3) COPD (chronic obstructive pulmonary disease): Code(s): J44.9 - Chronic obstructive pulmonary disease, unspecified Category: Medical Qualifiers: COPD type: unspecified COPD Qualified Code(s): J44.9 - Chronic obstructive pulmonary disease, unspecified (4) Other specified hypothyroidism: Code(s): E03.8 - Other specified hypothyroidism Category: Medical (5) Chronic GERD: Code(s): K21.9 - Gastro-esophageal reflux disease without esophagitis Category: Medical (6) Tobacco abuse: Code(s): Z72.0 - Tobacco use Category: Medical (7) Tobacco abuse counseling: Code(s): Z71.6 - Tobacco abuse counseling Category: Medical Plan History - The patient is a 63-year-old female presenting with medication management concerns and depressive symptoms. She voiced issues regarding her inhalers for COPD, expressing that the medication was not effective, and explained her misunderstanding regarding the use of multiple inhalers. Her prescribed Breo had not been utilized as directed. She is supposed to be on Breo once a day and Incruse Ellipta once a day, explained to her why she is taking 2 inhalers Hypertension: Blood pressure is stable patient is taking lisinopril 30 mg tolerating medication no side effects - Depression was characterized by notable changes in interest and motivation, impacting activities she previously found enjoyable and urgent concerns from her family prompted further exploration of her mood changes. Patient is interested in starting medication, Lexapro 10 mg sent patient is to start with half a tablet for a week and then full tablet We will set up telemedicine visit in 1 month to follow up on that - The last laboratory tests were conducted in September, showing acceptable parameters, due for labs to be done today GERD is stable with omeprazole Continued to smoke half a pack per day once again patient was instructed to stop as soon as possible and if she needs assistance she is to let me know Hypothyroidism: Continue levothyroxine 125 mcg Problem List - Chronic Obstructive Pulmonary Disease (COPD) - Essential Hypertension - Gastroesophageal Reflux Disease - Hypothyroidism - Depression Patient Instructions - Use both inhalers as prescribed together, as they contain different medicines that can work effectively together. - Continue to use the rescue inhaler as needed for acute symptoms. - Keep taking levothyroxine, lisinopril, and omeprazole as prescribed. - Follow the instructions to set up an online patient portal for better communication and access to health records. - Make sure to have blood work done as soon as possible - Begin the prescribed medication for depression and monitor for improved mood and increased activity engagement. - I will follow up in four weeks with a telephone visit to review progress and any concerns regarding the new medication. Orders: Orders Comprehensive Met. Panel Today E03.8 - Other specified hypothyroidism, F32.1 - Major depressive disorder, single episode, moderate, I10 - Essential (primary) hypertension, J44.9 - Chronic obstructive pulmonary disease, unspecified Magnesium Today E03.8 - Other specified hypothyroidism, F32.1 - Major depressive disorder, single episode, moderate, I10 - Essential (primary) hypertension, J44.9 - Chronic obstructive pulmonary disease, unspecified Complete Blood Count Auto Diff Today E03.8 - Other specified hypothyroidism, F32.1 - Major depressive disorder, single episode, moderate, I10 - Essential (primary) hypertension, J44.9 - Chronic obstructive pulmonary disease, unspecified LDL Cholesterol Direct Today E03.8 - Other specified hypothyroidism, F32.1 - Major depressive disorder, single episode, moderate, I10 - Essential (primary) hypertension, J44.9 - Chronic obstructive pulmonary disease, unspecified TSH reflex Free T4 Today E03.8 - Other specified hypothyroidism, F32.1 - Major depressive disorder, single episode, moderate, I10 - Essential (primary) hypertension, J44.9 - Chronic obstructive pulmonary disease, unspecified Vitamin D 25-OH (D2 and D3) Today E03.8 - Other specified hypothyroidism, F32.1 - Major depressive disorder, single episode, moderate, I10 - Essential (primary) hypertension, J44.9 - Chronic obstructive pulmonary disease, unspecified Vitamin B12 Today E03.8 - Other specified hypothyroidism, F32.1 - Major depressive disorder, single episode, moderate, I10 - Essential (primary) hypertension, J44.9 - Chronic obstructive pulmonary disease, unspecified Medications: New escitalopram oxalate (Lexapro) half tab for a week then full tab once a day 10 mg PO DAILY 30 tabs 0RF depression omeprazole 20 mg PO DAILY 90 caps 0RF Refilled lisinopril 30 mg PO DAILY 90 days 90 tabs 1RF albuterol sulfate 90 mcg/actuation 2 puffs inhalation Q6H 30 days PRN 8.5 grams 0RF bronchospasm fluticasone furoate-vilanterol 200-25 mcg/dose (Breo Ellipta) 1 inh inhalation DAILY 90 days 3 multiple units 1RF levothyroxine 125 mcg PO DAILY 90 days 90 tabs 1RF umeclidinium 62.5 mcg/actuation (Incruse Ellipta) 1 inh inhalation BEDTIME 30 ea 4RF
== END 2024-04-05 14:09 | disposition home or self-care (01) ==
PROVIDERS: PCP Internal Medicine; Visit Provider Internal Medicine
DX: F32.1 Major depressive disorder, single episode, moderate (principal); I10 Essential (primary) hypertension; J44.9 Chronic obstructive pulmonary disease, unspecified; E03.8 Other specified hypothyroidism; K21.9 Gastro-esophageal reflux disease without esophagitis; Z72.0 Tobacco use; Z71.6 Tobacco abuse counseling

== ENCOUNTER 2024-05-05 08:15 | Outpatient (AMB) | payer MEDICARE, SELFPAY ==
--- NOTE | 2024-05-05 08:23 | MHC.PC.OV ---
Vital Signs 05/05/24 08:24 Height 5 ft 6 in Intake Visit Reasons: 4 week TV follow up Manager Marketing Communications Required: No Accompanied by: Self / Same As Patient Allergies phenobarbital [PHENOBARBITAL] Allergy (Unknown, Verified 05/05/24 08:24) RASH, hives, rash Medication List - Last Reconciled 05/05/24 by Mukund Hinton MD albuterol sulfate 90 mcg/actuation 2 puffs inhalation Q6H PRN 30 days escitalopram oxalate (Lexapro) 10 mg PO DAILY fluticasone furoate-vilanterol 200-25 mcg/dose (Breo Ellipta) 1 inh inhalation DAILY 90 days ibuprofen 200 mg PO Q6H PRN levothyroxine 125 mcg PO DAILY 90 days lisinopril 30 mg PO DAILY 90 days omeprazole 20 mg PO DAILY umeclidinium 62.5 mcg/actuation (Incruse Ellipta) 1 inh inhalation BEDTIME Tobacco use date assessed: 04/05/24 Fall risk assessment: No Falls in past year Last assessed Fall Risk: 05/05/24 Dental Screening Dental Screen Date: 04/05/24 HPI 4 week TV follow up HPI Details History - The patient is a 63-year-old female presenting with COPD exacerbation and anxiety disorder. - She demonstrates financial barriers in accessing COPD inhalers, with costs preventing current use. - The patient is experiencing anxiety related to an upcoming trip due to concerns of breathing complications in humid environments in [place], potentially impacting COPD management. - She has been prescribed prednisone tablets to manage potential exacerbation of COPD symptoms. - She has commenced an anxiety medication, which initially caused sedation, but is otherwise tolerating the full dose taken nocturnally. feeling so much better, depressio is better and she actually want to do stuff now - Reported effective management of GERD symptoms with omeprazole. - With a forthcoming insurance coverage change to [employer], her inhalers might be cheaper and then she can afford them - A recent finding shows vitamin D deficiency, needing supplementation. Problem List - Chronic Obstructive Pulmonary Disease (COPD) - Anxiety Disorder - Asthma - Gastroesophageal Reflux Disease (GERD) - Vitamin D Deficiency Patient Instructions - I ll prescrib nebulizer machine for emergency use while she is waiting for her new insurance - Use prednisone tablets for breathing difficulties if symptoms worsen due to humidity. while travelling - Take one prednisone 5 mg tablet per day as needed, - Continue taking the anxiety medication at night as instructed. Laxopro 10 mg - Starting vitamin D supplementation at 1000 units daily, preferably in the morning. - Explore affordable options or insurance coverage for all prescribed medications. - Remain calm and focus on the positive aspects of your upcoming trip. Review of Systems - General: No fever no chills - Neurological: No headaches no dizziness - Ear nose throat: No sore throat no hearing difficulty no ear pain - Cardiovascular: No syncope, no chest pain, no palpitations - Gastrointestinal: No nausea vomiting or diarrhea - Endocrine: No polyuria polydipsia no heat intolerance - Genitourinary: No dysuria , no blood in urine [facility] Medical History COPD (chronic obstructive pulmonary disease) Hypertension, essential Surgical History History of left hip replacement History of ileostomy History of resection of rectum History of surgery Ovarian mass, left History of total hysterectomy Family History Father No problems noted. Mother Lymphoma Sister No problems noted. Sister No problems noted. Son No problems noted. Daughter No problems noted. Daughter No problems noted. Other Substance use disorder Social History Housing: Other (mobile home) Patient Tobacco Use Status: Current someday Tobacco user Cigarette Packs Per Day: 0.5 e-Cigarette/Vaping Use: Never Used service: No Current occupational status: retired Cognitive needs: No Hearing needs: No Vision needs: Yes Questionnaire PHQ-9 Over the last 2 weeks, how often have you been bothered by any of the following problems? 1. Little interest or pleasure in doing things: several days 2. Feeling down, depressed, or hopeless: several days 3. Trouble falling or staying asleep, or sleeping too much: not at all 4. Feeling tired or having little energy: several days 5. Poor appetite or overeating: not at all 6. Feeling bad about yourself - or that you are a failure or have let yourself or your family down: several days 7. Trouble concentrating on things, such as reading the newspaper or watching television: several days 8. Moving or speaking so slowly that other people could have noticed. Or the opposite - being so fidgety or restless that you have been moving around a lot more than usual: not at all 9. Thoughts that you would be better off or of hurting yourself in some way: not at all Total score: 5 Depression Screening Interpretation: Negative Depression Screening Done: Yes 84042 - PHQ-9 Billing: Yes Source: Developed by Drs. Cory Ochoa, Diya Alicia, Virgil Lion and colleagues, with an educational ara from [employer]. Thrive Questionnaire Date Thrive assessed: 04/05/24 I am a: Patient What is your living situation today?: I have a steady place to live Within the past 12 months, did the food you bought not last and you didn't have the money to get more?: Never true Within the past 12 months, did you worry whether your food would run out before you got money to buy more?: Never true Do you have trouble paying for medicines?: No Do you have trouble getting transportation to medical appointments?: Yes Do you have trouble paying your heating and electricity bill?: No Do you have trouble taking care of your child, family member or friend?: No Do you have trouble with day-to-day activities such as bathing, preparing meals, shopping, managing finances, etc.?: No Are you currently unemployed and looking for a job?: No Are you interested in more education?: No Please select the resources that you would like help with: None Currently or been in a relationship where the following occur: No concerns reported THRIVE Score: 1 AUDIT C Alcohol Use Questionnaire (AUDIT-C) 1. How often do you have a drink containing alcohol?: Monthly or less 2. How many drinks containing alcohol do you have on a typical day when you are drinking?: 1 or 2 3. How often do you have six or more drinks on one occasion?: Never Total Score: 1 Score Reviewed/Action Taken: Yes ADAM-7 AMB Questionnaire ADAM-7 Date ADAM - 7 assessed: 05/05/24 Feeling nervous, anxious, or on edge: 2 = More than half the days Not being able to stop or control worryin = Several days Worrying too much about different things: 2 = More than half the days Trouble relaxin = Not at all Being so restless that it is hard to sit still: 0 = Not at all Becoming easily annoyed or irritable: 1 = Several days Feeling afraid as if something awful might happen: 2 = More than half the days Total ADAM-7 score (0-4 normal; 5-9 mild; 10-14 moderate; 15-21 severe): 8 Source: Developed by Drs. Cory Ochoa, Diya Alicia, Virgil Lion and colleagues, with an educational ara from [employer]. ADAM-7 Assessment Billing ADAM-7 Assessment Tool: ADAM-7 Assessment 62438 Physical exam (Primary Care) Tobacco/Smoking Status: Tobacco use Status Tobacco use date assessed 04/05/24 05/05/24 08:29 Patient Tobacco Use Status Current someday Tobacco 05/05/24 08:29 e-Cigarette/Vaping Use Never Used 05/05/24 08:29 PHQ-9: PHQ-9 Score PHQ-9: Total score 5 05/05/24 08:29 Depression Screening Interpretation: Negative Thrive Assessment: Date of Thrive Assessment Date Thrive assessed 04/05/24 05/05/24 08:29 Currently or been in a relationship where the following occur: No concerns reported Telehealth Telehealth Telehealth Platform: [facility] Location of provider rendering services: practice address Location of patient: address on file Patient Identification confirmed using: Name, : Yes Telehealth method: video Patient verbally consented to treatment: Yes Patient verbally consented to billing insurance company: Yes Patient informed of any privacy concerns related to visit: Yes Minutes spent on Phone/Video with Pt.: 16 Coding Level of Care Code Tele Est Pt Level 4 (52202) Diagnoses Depression, major, single episode, moderate F32.1 Hypertension, essential I10 Chronic obstructive pulmonary disease, unspecified COPD type J44.9 COPD type: unspecified COPD Other specified hypothyroidism E03.8 Chronic GERD K21.9 Vitamin D deficiency E55.9 Additional Codes ADAM-7 Assessment Billing - ADAM-7 Assessment Tool: ADAM-7 Assessment 31395 ([id number]) PHQ-9 - 93608 - PHQ-9 Billing: Yes ([id number]) Assessment & Plan Assessment & Plan (1) Depression, major, single episode, moderate: Code(s): F32.1 - Major depressive disorder, single episode, moderate Category: Medical (2) Hypertension, essential: Code(s): I10 - Essential (primary) hypertension Category: Medical (3) COPD (chronic obstructive pulmonary disease): Code(s): J44.9 - Chronic obstructive pulmonary disease, unspecified Category: Medical Qualifiers: COPD type: unspecified COPD Qualified Code(s): J44.9 - Chronic obstructive pulmonary disease, unspecified (4) Other specified hypothyroidism: Code(s): E03.8 - Other specified hypothyroidism Category: Medical (5) Chronic GERD: Code(s): K21.9 - Gastro-esophageal reflux disease without esophagitis Category: Medical (6) Vitamin D deficiency: Code(s): E55.9 - Vitamin D deficiency, unspecified Category: Medical Plan History - The patient is a 63-year-old female presenting with COPD exacerbation and anxiety disorder. - She demonstrates financial barriers in accessing COPD inhalers, with costs preventing current use. - The patient is experiencing anxiety related to an upcoming trip due to concerns of breathing complications in humid environments in [place], potentially impacting COPD management. - She has been prescribed prednisone tablets to manage potential exacerbation of COPD symptoms. - She has commenced an anxiety medication, which initially caused sedation, but is otherwise tolerating the full dose taken nocturnally. feeling so much better, depressio is better and she actually want to do stuff now - Reported effective management of GERD symptoms with omeprazole. - With a forthcoming insurance coverage change to [employer], her inhalers might be cheaper and then she can afford them - A recent finding shows vitamin D deficiency, needing supplementation. Problem List - Chronic Obstructive Pulmonary Disease (COPD) - Anxiety Disorder - Asthma - Gastroesophageal Reflux Disease (GERD) - Vitamin D Deficiency Patient Instructions - I ll prescrib nebulizer machine for emergency use while she is waiting for her new insurance - Use prednisone tablets for breathing difficulties if symptoms worsen due to humidity. while travelling - Take one prednisone 5 mg tablet per day as needed, - Continue taking the anxiety medication at night as instructed. Laxopro 10 mg - Starting vitamin D supplementation at 1000 units daily, preferably in the morning. - Explore affordable options or insurance coverage for all prescribed medications. - Remain calm and focus on the positive aspects of your upcoming trip. Medications: New cholecalciferol (vitamin D3) 25 mcg PO DAILY 90 days 90 caps 1RF prednisone 5 mg PO .q am 7 days PRN 7 tabs 0RF for shortness of breath Refilled escitalopram oxalate (Lexapro) half tab for a week then full tab once a day 10 mg PO DAILY 90 tabs 0RF depression
== END 2024-05-05 08:41 | disposition home or self-care (01) ==
LOC: HO.HMCC 08:16
PROVIDERS: PCP Internal Medicine; Visit Provider Internal Medicine
DX: I10 Essential (primary) hypertension (principal); F32.1 Major depressive disorder, single episode, moderate; J44.9 Chronic obstructive pulmonary disease, unspecified; E03.8 Other specified hypothyroidism; K21.9 Gastro-esophageal reflux disease without esophagitis; E55.9 Vitamin D deficiency, unspecified

== ENCOUNTER → 2024-05-05 08:15 | Outpatient (BNVA) | payer MEDICARE, SELFPAY | PROVIDERS: PCP Internal Medicine; Visit Provider Internal Medicine | DX: F32.1 Major depressive disorder, single episode, moderate (principal); I10 Essential (primary) hypertension; J44.9 Chronic obstructive pulmonary disease, unspecified; E03.8 Other specified hypothyroidism; K21.9 Gastro-esophageal reflux disease without esophagitis; E55.9 Vitamin D deficiency, unspecified | CPT/HCPCS: 96127 ==

== ENCOUNTER 2024-06-13 08:06 | Outpatient (AMB) | payer MEDICARE, SELFPAY ==
[2024-06-13 08:11] VITALS: BP 120/80; PULSE 64; TEMP 36.8; O2SAT 94
--- NOTE | 2024-06-13 08:11 | AM.OFFWIN_ITS ---
Intake Vital Signs 06/13/24 08:11 Weight 167 lb BP 120/80 Blood Pressure Location Lt brachial Position Sitting Pulse 64 Pulse Source Pulse Oximeter Temp 98.3 F Temp Source Oral Pulse Oximetry (%) 94 Oxygen Delivery Method Room Air Intake Visit Reasons: EP-white spot in jesus Intake Note: Patient here for headache and spot on tongue that started night. Patient Tobacco Use Status: Current someday Tobacco user Allergies phenobarbital [PHENOBARBITAL] Allergy (Unknown, Verified 06/13/24 08:21) RASH, hives, rash Do you need a note to return to daycare/school/sports/work: No HPI HPI Comments History of Present Illness Details 64 y/o Female patient who presents to [facility] walk in clinic with c/o Sore- throat and white patches on Tongue since . Reports feeling burning inside the mouth, worse when consuming food. Reports pain and difficulty with swallowing. Denies Fevers, chills, nausea or vomiting. She is a chronic cigarette smoker. Has h/o COPD and Uses two inhalers. She does admit to forgetting to rinse mouth after each inhaler use. [facility] Medical History (Updated 06/13/24 @ 08:51 by Urvashi Mcdaniel NP) Acute pharyngitis Oral thrush COPD (chronic obstructive pulmonary disease) Hypertension, essential Surgical History History of left hip replacement History of ileostomy History of resection of rectum History of surgery Ovarian mass, left History of total hysterectomy Family History Father No problems noted. Mother Lymphoma Sister No problems noted. Sister No problems noted. Son No problems noted. Daughter No problems noted. Daughter No problems noted. Other Substance use disorder Social History Housing: Other (mobile home) Patient Tobacco Use Status: Current someday Tobacco user Cigarette Packs Per Day: 0.5 e-Cigarette/Vaping Use: Never Used service: No Current occupational status: retired Cognitive needs: No Hearing needs: No Vision needs: Yes Physical Exam Vital Signs: Last Vital Signs Temp 98.3 F 06/13/24 08:11 Pulse 64 06/13/24 08:11 BP 120/80 06/13/24 08:11 Pulse Ox 94 06/13/24 08:11 Oxygen Delivery Method Room Air 06/13/24 08:11 HEENT Head: Yes normocephalic Mouth: moist mucous membranes, Abnormal oral and palatal mucosa present erythematous; not edematous and tongue abnormal fissured and with white coating Throat: Yes uvula midline Results AMB Rapid Strep AMB Rapid Strep Negative Last Edit by ANTONELLA Arellano on 06/13/24 08:41 Results Reviewed Results Reviewed: Laboratory Last Values Strep Scn Rapid Clinic Negative 06/13/24 08:41 Assessment & Plan Assessment & Plan (1) Oral thrush: Code(s): B37.0 - Candidal stomatitis Plan: Advised to immediately rinse mouth after each inhaler use. Ordered Nystatin Oral mouth wash. Maintain good Oral Hygiene F/U with Dentist. (2) Acute pharyngitis: Code(s): J02.9 - Acute pharyngitis, unspecified Qualifiers: Pharyngitis/tonsillitis etiology: unspecified etiology Qualified Code(s): J02.9 - Acute pharyngitis, unspecified Plan: Rapid Strep Negative. OTC Sore-throat relief remedies Orders: Orders AMB Rapid Strep Screen Today Z13.9 - Encounter for screening, unspecified Medications: New nystatin Swish in the mouth and retain for as long as possible (several minutes) before swallowing. 1 mL PO QID 7 days 60 mL 0RF B37.0 - Candidal stomatitis Coding Level of Care Code Est Pt Level 4 (48353) Diagnoses Oral thrush B37.0 Acute pharyngitis, unspecified etiology J02.9 Pharyngitis/tonsillitis etiology: unspecified etiology Time Spent (min) 20
--- OUTSIDE RECORDS SUMMARY | 2024-06-13 08:11 | XMS_ITS | Data Portability ---
Author Organization [place] - [facility] Address [facility] [place] [address] Care Team Providers Care Command And Control Specialist Name Role Phone SERENA MERRITT Primary Care Provider Assessment Encounter Date Assessment Date Assessment LastModified by Organization Details LastModified Time 08/22/2019 08/22/2019 Overview/History :T is a 59-year-old female that had recent hip replacement surgery at [facility]. Her roommate during that hospitalization eventually ended up being swabbed and was found to be positive for COVID 19. She has not had any symptoms concerning for COVID-19, no fevers or chills, no respiratory symptoms or GI symptoms. Upon her discharge from the hospital she was instructed to contact [facility] in 1 week's time for COVID testing. Exam: Patient is awake and alert, she is in good spirits and is making jokes. Hemodynamically stable, temperature of 99.0. Lungs clear bilaterally, normal bowel sounds, heart rate regular. DDx considered, but not limited to:Asymptomatic COVID-19 testing due to known positive exposure. Work up/Results:COVID-1 9 swab pending Plan/Discussion:I discussed with the patient that we will be in touch with her once her test results were back. I did tell her there may be a delay in getting her results due to the volume of COVID-19 tests being collected recently. I also reviewed with her reported signs and symptoms of COVID 19. I explained to her that the incubation period is not completely known but believed to be between 7 and 14 days, if she were to have symptoms concerning for COVID-19 even after getting results of the swab she should self quarantine and contact her PCP or DH for reevaluation. In order to obtain further information and compare any laboratory results/values, I have accessed . This information was pertinent in my medical decision making today. Time On Scene with Patient: 00:32:06 [email or web address] Not available 08/22/2019 16:53:16 Plan of Treatment Reminders Order Date Submit Date Provider Last Modified By Organization Details Last Modified Time Details Appointments None recorded. Lab SARS CoV 2 RNA (COVID-19), QL, zyglo inspector-PCR, respiratory specimen 2019 020 SHERLYN [facility] (Centralized Electronic Ordering - All Locations), Patient Can Go To The Location Of Their Choice, [id number] 0 14:06:10 Referral None recorded. Procedures None recorded. Surgeries None recorded. Imaging None recorded. Medication Orders None recorded. Patient TargetsNo targets recorded. Patient Instructions Encounter Date Encounter Id Patient Instructions Last Modified By Organization Details Last Modified Time 08/22/[id number] WE CAME TO SEE Y OU TODAY YOU HAD AN EXPOSURE TO A PERSON POSITIVE FOR COVID-19. WE SWAPPED YOU FOR THIS TODAY, WE WILL BE IN TOUCH WITH YOU SOON WE HAVE THESE RESULTES BACK. DUE TO VOLUME OF TESTS THIS CAN TAKE UP TO 7-10 DAYS. Please follow all CDC guidance. How to Protect Yourself & Others Older adults and people who have severe underlying medical conditions like heart or lung disease or diabetes seem to be at higher risk for developing serious complications from COVID-19 illness. Know how it spreads ? There is currently no vaccine to prevent coronavirus disease 2019 (COVID-19). ? The best way to prevent illness is to avoid being exposed to this virus. ? The virus is thought to spread mainly from [id number]-wh-ayqhhu. o Between people who are in close contact with one another (within about 6 feet). o Through respiratory droplets produced when an infected person coughs, sneezes or talks. o These droplets can land in the mouths or noses of people who are nearby or possibly be inhaled into the lungs. o Some recent studies have suggested that COVID-19 may be spread by people who are not showing symptoms. Wash your hands often ? Wash your hands often with soap and water for at least 20 seconds especially after you have been in a public place, or after blowing your nose, coughing, or sneezing. ? If soap and water are not readily available, use a hand matte cutter that contains at least 60% alcohol. Cover all surfaces of your hands and rub them together until they feel dry. ? Avoid touching your eyes, nose, and mouth with unwashed hands. Avoid close contact ? Avoid close contact with people who are sick, even inside your home. If possible, maintain 6 feet between the person who is sick and other household members. ? Put distance between yourself and other people outside of your home. o Remember that some people without symptoms may be able to spread virus. o Stay at least 6 feet (about 2 arms? length) from other people. o Do not gather in groups. o Stay out of crowded places and avoid mass gatherings. o Keeping distance from others is especially important for people who are at higher risk of getting very sick. Cover your mouth and nose with a cloth face cover when around others ? You could spread COVID-19 to others even if you do not feel sick. ? Everyone should wear a cloth face cover when they have to go out in public, for example to the grocery store or to tack picker other necessities. o Cloth face coverings should not be placed on young children under age 2, anyone who has trouble breathing, or is unconscious, incapacitated or otherwise unable to remove the mask without assistance. ? The cloth face cover is meant to protect other people in case you are infected. ? Do NOT use a facemask meant for a healthcare worker. ? Continue to keep about 6 feet between yourself and others. The cloth face cover is not a substitute for social distancing. Cover coughs and sneezes ? If you are in a private setting and do not have on your cloth face covering, remember to always cover your mouth and nose with a tissue when you cough or sneeze or use the inside of your elbow. ? Throw used tissues in the trash. ? Immediately wash your hands with soap and water for at least 20 seconds. If soap and water are not readily available, clean your hands with a hand matte cutter that contains at least 60% alcohol. Clean and disinfect ? Clean AND disinfect frequently touched surfaces daily. This includes tables, doorknobs, light switches, countertops, handles, desks, phones, keyboards, toilets, faucets, and sinks. ? If surfaces are dirty, clean them. Use detergent or soap and water prior to disinfection. ? Then, use a household disinfectant. Most common EPA-registered household disinfectants will work. Monitor Your Health ? Be alert for symptoms. Watch for fever, cough, shortness of breath, or other symptoms of COVID-19. o Especially important if you are running essential errands, going into the office or workplace, and in settings where it may be difficult to keep a physical distance of 6 feet. ? Take your temperature if symptoms develop. o Don? t take your temperature within 30 minutes of exercising or after taking medications that could lower your temperature, like acetaminophen. ? Follow CDC guidance if symptoms develop. [email or web address] Not available 08/22/2019 16:24:47 Reason for Referral None Reported. Results Created Date Observation Date Name Description Value Unit Range Abnormal Flag Note LastModifiedBy Organization Detail LastModifiedTime 08/22/19 20 08/23/2019 SARS CoV 2 RNA (COVI D-19) , QL, zyglo inspector-P CR, respi rator y speci men covid-19 PCR overall result (neg) normal NEGAT BINDU 2019- novel Coron aviru s (2018 -nCoV ) not detec aracelis by real- time RT-PC R. Note: If clini tan suspi cion for COVID -19 is high, natasha nue to maint ain preca ution s and consi wandy repea t testi ng. Resul t repor aracelis to DANIELA DP. To preve nt error s in diagn osis, test resul ts shoul d be inter prete d in the tegan xt of clini tan findi ngs and other labor atory data. Rare polym orphi sms exist that could lead to false -nega tive or false -posi tive resul ts. If resul ts obtai maggie do not match the clini tan findi ngs, addit ional testi ng shoul d be consi dered . This test has been autho rized by the FDA under an Emerg ency Use Autho rialex ion (EUA) for use by josé luis singleton labor atori es. Testi ng perfo rmed by real time PCR kikei [facility] FELICIANO [employer] SARS- CoV-2 test. Not Available [facility] (Centralized Electronic Ordering - All Locations) Patient Can Go To The Location Of Their Choice, [id number] 08/23/2019 14:06:10 Result Notes None recorded. Procedures Surgical History Date Name Laterality Status Provider Name and Address Organization Details Recorded Time 08/22/19 20 Medication Review completed STARLA MEDEIROS NP [address], [place], [address], [place] [facility] 08/22/2019 16:50:10 Imaging Results None recorded. Procedure Notes None recorded. Medical Equipment None Reported. Allergies Allergen ID Allergen Name Allergen Category Reaction Reaction Severity Criticality Documentation Date Start Date Code Code System Note Provider Name and Address Organization Details Recorded Time 518457 phenobarb ital medicatio n Not available Not available Not available 08/22/2019 8134 RxNorm STARLA MEDEIROS NP [address], [place], [address], [place] [facility] 0 15:58:18 Medications Name Sig Start Date Stop Date Status Note LastModified by Organization Details LastModified Time clindamycin HCl 300 mg capsule TAKE 1 CAPSULE BY MOUTH EVERY 6 HOURS UNTIL GONE 08/21 completed Not Available Not Available Not Available tramadol 50 mg tablet TAKE 2 TABLETS BY MOUTH EVERY 12 HOURS NEEDED FOR PAIN 08/21 completed Not Available Not Available Not Available oxycodone-a cetaminophe n 5 mg-325 mg tablet TAKE 1 TABLET BY MOUTH EVERY 4 HOURS NEEDED FOR PAIN (DO NOT OPERATE HEAVY MACHINERY UNDER THE INFLUENCE ) 08/21 completed Not Available Not Available Not Available Euthyrox 112 mcg tablet TAKE 1 TABLET BY MOUTH ONCE DAILY 08/21 completed Not Available Not Available Not Available cephalexin 500 mg capsule 08/21 completed Not Available Not Available Not Available lisinopril 10 mg tablet active Not Available Not Available Not Available ibuprofen 600 mg tablet 08/21 completed Not Available Not Available Not Available oxycodone-a cetaminophe n 7.5 mg-325 mg tablet TAKE 1 TABLET BY MOUTH EVERY 6 HOURS NEEDED FOR PAIN 08/21 completed Not Available Not Available Not Available oxycodone 5 mg tablet TAKE 1 TABLET BY MOUTH EVERY 6 HOURS NEEDED FOR PAIN 08/21 completed Not Available Not Available Not Available chlorhexidi ne gluconate 0.12 % mouthwash TAKE 1 CAPFUL SWISH HOLD FOR 2 MINUTES THE SPIT 3 TIMES A DAY AFTER MEAL 08/21 completed Not Available Not Available Not Available levothyroxi ne active Not Available Not Available Not Available ProAir HFA 90 mcg/actuati on aerosol inhaler INHALE 2 PUFFS BY MOUTH EVERY 6 HOURS NEEDED 08/21 completed Not Available Not Available Not Available cholecalcif naif (vitamin D3) 1,250 mcg (50,000 unit) capsule TAKE 1 CAPSULE BY MOUTH ONCE A WEEK 08/21 completed Not Available Not Available Not Available Xarelto 10 mg tablet active Not Available Not Available No t Available Chantix Continuing Month Box 1 mg tablet 08/21 completed Not Available Not Available Not Available Chantix Starting Month Box 0.5 mg (11)-1 mg (42) tablets in dose pack 08/21 completed Not Available Not Available Not Available Spiriva Respimat 2.5 mcg/actuati on solution for inhalation 08/21 completed Not Available Not Available Not Available Vitals Date Recorded Oxygen saturation Oxygen saturation in Arterial blood by Pulse oximetry Respiratory rate Heart rate Body temperature Systolic blood pressure Diastolic blood pressure Provider Name and Address Organization Details Last Updated DateTime 0 99 % 99 % 26 /min 76 /min 99 [degF] 164 mm[Hg] 86 mm[Hg] Not Available [facility] 16:17:21 Social History Question Answer Notes LastModified by Organizat ion Details LastModified Time Tobacco Smoking Status Former Smoker STARLA MEDEIROS NP [address], [place], [address], [place] [facility] 08/22/2019 16:01:21 Do You Have An Advance Directive? No [email or web address] Information not available 08/22/2019 What Is Your Code Status? Full Code [email or web address] Information not available 08/22/2019 Sex: Unknown Functional Status None recorded. Mental Status None recorded. Family History Relationship Description Onset Age of this Age Resolved Age Notes LastModified by Organization Details LastModified Time Mother Malignant neoplastic disease [email or web address] Not available 16:02:12 Medical History Condition Response Diabetes N Coronary Artery Disease N Cancer Y Stroke N COPD N Asthma N High Cholesterol N Pulmonary Embolism N Hypertension Y Kidney Disease N Gynecological HistoryNo gynecological history recorded. Obstetrics History GPAL:G 0 P 0 0 0 0 Past Encounters Encounter ID Performer Location Encounter Start Date Encounter Closed Date Diagnosis/Indication Diagnosis SNOMED-CT Code Diagnosis ICD10 Code Diagnosis Note [id number] STARLA MEDEIROS NP [facility] [address] [place] [address] 08/22/2019 15:56:16 08/23/2019 17:49:58 Exposure to communicable disease 648110058 Z20.828 Health Concerns Section Related Observation LastModified by Organization Detai ls LastModified Time None Recorded Concern Status LastModified by Organization Details LastModified Time None Recorded Advance Directives Directive N: Payers Encounter Date Sequence Insurance Name Policy Number Policy Galvan Covered Member ID Galvan Member ID Guarantor Name 08/22/2019 1 [place] [id number] Erica Chavez [id number] Erica Chavez 08/22/2019 2 [place] [facility] Erica Chavez [id number] Ericasheila Chavez Notes Date Note Type Note Provider Name and Address Organization Details Recorded Time 08/22/2019 text/html This is a 59-year-old female that is a [facility]. She has a medical history significant for history of cervical and colorectal cancer, hypertension and osteoarthritis. She recently had hip replacement surgery at [facility] last week. She tells me that she had COVID testing prior to her scheduled surgery as a condition of her surgery. While recovering in the hospital her roommate ended up being tested and was positive for COVID 19. She last had contact with this room mate last Thursday. When being discharged from the hospital [facility] and told to contact us in 1 week for asymptomatic testing. The patient is denying any fevers or chills, no GI or respiratory symptoms. STARLA MEDEIROS NP [address], [place], [address], [place] [facility] 08/22/2019 16:53:26 OBGyn Episode No OBEpisode recorded.
== END 2024-06-13 08:45 | disposition home or self-care (01) ==
PROVIDERS: PCP Internal Medicine; Visit Provider Nurse Practitioner Family
DX: B37.0 Candidal stomatitis (principal); J02.9 Acute pharyngitis, unspecified; Z13.9 Encounter for screening, unspecified

== ENCOUNTER → 2024-06-13 08:06 | Outpatient (BNVA) | payer MEDICARE, SELFPAY | PROVIDERS: PCP Internal Medicine; Visit Provider Nurse Practitioner Family | DX: B37.0 Candidal stomatitis (principal); J02.9 Acute pharyngitis, unspecified | CPT/HCPCS: 87880; 99212 ==

== ENCOUNTER 2024-06-16 08:42 | Outpatient (AMB) | payer MEDICARE, SELFPAY ==
--- NOTE | 2024-06-16 08:58 | AM.OFFWIN_ITS ---
Intake Vital Signs 06/16/24 09:03 Weight 167 lb BP 140/80 H Blood Pressure Location Rt brachial Position Sitting Pulse 76 Pulse Source Pulse Oximeter Pulse Oximetry (%) 97 Oxygen Delivery Method Room Air Intake Visit Reasons: EP- LT sear pain, throat pain, thrush Patient Tobacco Use Status: Current someday Tobacco user Allergies phenobarbital [PHENOBARBITAL] Allergy (Unknown, Verified 06/13/24 08:21) RASH, hives, rash HPI HPI Comments History of Present Illness Details 06/13/2024: 64 y/o Female patient who presents to [facility] walk in clinic with c/o Sore-throat and white patches on Tongue since . Reports feeling burning inside the mouth, worse when consuming food. Reports pain and difficulty with swallowing. Denies Fevers, chills, nausea or vomiting. She is a chronic cigarette smoker. Has h/o COPD and Uses two inhalers. She does admit to forgetting to rinse mouth after each inhaler use. 06/16/24: 64 y/o Female patient who returns to the walk in clinic with similar concerns from 06/13/24. Reports the Oral Mouth wash is not working, she still wakes up with tongue covered with white patches, where she has to scrape off often. She still has Sore-throat and tongue burning. She does add that since yesterday, she has been having left Ear pain that is so severe, keeping her up at night and crying in pain. She has been using Ibuprofen and Acetaminophen with no relief. States I have this similar pain in the past before, where it was Fungal infection in my ears . She rates the pain today at 10/10 on pain scale. REPLACED BY [facility] Medical History (Updated 06/16/24 @ 09:47 by Urvashi Mcdaniel NP) Otomycosis of left ear Acute pharyngitis Oral thrush COPD (chronic obstructive pulmonary disease) Hypertension, essential Surgical History History of left hip replacement History of ileostomy History of resection of rectum History of surgery Ovarian mass, left History of total hysterectomy Family History Father No problems noted. Mother Lymphoma Sister No problems noted. Sister No problems noted. Son No problems noted. Daughter No problems noted. Daughter No problems noted. Other Substance use disorder Social History Housing: Other (mobile home) Patient Tobacco Use Status: Current someday Tobacco user Cigarette Packs Per Day: 0.5 e-Cigarette/Vaping Use: Never Used service: No Current occupational status: retired Cognitive needs: No Hearing needs: No Vision needs: Yes Review of Systems Const All systems reviewed & are unremarkable except as noted in HPI and below Physical Exam Vital Signs: Last Vital Signs Pulse 76 06/16/24 09:03 BP 140/80 H 06/16/24 09:03 Pulse Ox 97 06/16/24 09:03 Oxygen Delivery Method Room Air 06/16/24 09:03 Const Other: Crying during the appointment. General: no acute distress and anxious; No comfortable Nutritional Appearance: overweight Orientation/consciousness: patient oriented x3 HEENT Head: Yes normocephalic Ears: external ears normal, TM normal on the right, Abnormal EAC present erythema, EAC tenderness and otic discharge occluded by discharge on the left and TM abnormal bulging on the left, erythematous on the left and retracted on the left; not perforated and not scarred Face and sinus: Yes sinuses nontender Mouth: Abnormal oral and palatal mucosa present erythematous and white patches; not edematous and no hematomas and tongue abnormal fissured and with white coating Throat: Yes uvula midline Resp Effort & Inspection: normal respiratory effort Auscultation: clear to auscultation bilaterally Cardio Heart sounds: S1 normal heart sound present and S2 normal heart sound present Neuro General: patient oriented x3 Psych Speech and movement: Normal speech and movement present Affect: Labile affect present, Sad affect present and Anxious affect present Assessment & Plan Assessment & Plan (1) Otomycosis of left ear: Code(s): B36.9 - Superficial mycosis, unspecified; H62.42 - Otitis externa in other diseases classified elsewhere, left ear Plan: Ordered Fungal Ear Drops Ibuprofen for pain relief. (2) Oral thrush: Code(s): B37.0 - Candidal stomatitis Plan: Continue using Mouth wash for another 7 days. Ordered Fluconazole 2 doses. Medications: New clotrimazole 1% 1 appl topical BID 10 days 30 mL 0RF B36.9 - Superficial mycosis, unspecified, H62.42 - Otitis externa in other diseases classified elsewhere, left ear fluconazole TAKE ONE TABLET TODAY, TAKE SECOND DOSE IN 72 HOURS. 150 mg PO DAILY 2 tabs 0RF B37.0 - Candidal stomatitis Coding Level of Care Code Est Pt Level 4 (35437) Diagnoses Otomycosis of left ear B36.9; H62.42 Oral thrush B37.0 Time Spent (min) 20
[2024-06-16 09:03] VITALS: BP 140/80; PULSE 76; O2SAT 97
== END 2024-06-16 09:43 | disposition home or self-care (01) ==
PROVIDERS: PCP Internal Medicine; Visit Provider Nurse Practitioner Family
DX: B36.9 Superficial mycosis, unspecified (principal); H62.42 Otitis externa in other diseases classified elsewhere, left ear; B37.0 Candidal stomatitis

== ENCOUNTER → 2024-06-16 08:42 | Outpatient (BNVA) | payer MEDICARE, SELFPAY | PROVIDERS: PCP Internal Medicine; Visit Provider Nurse Practitioner Family | DX: B36.9 Superficial mycosis, unspecified (principal); H62.42 Otitis externa in other diseases classified elsewhere, left ear; B37.0 Candidal stomatitis | CPT/HCPCS: 99212 ==

== ENCOUNTER 2024-06-17 08:52 | Outpatient (AMB) | payer MEDICARE, SELFPAY ==
[2024-06-17 08:54] VITALS: BP 148/84; PULSE 84; O2SAT 94; BMI 26.3
--- NOTE | 2024-06-17 08:54 | MHC.PC.OV ---
Vital Signs 06/17/24 08:54 Height 5 ft 6 in Weight 163 lb 4 oz BMI 26.3 BP 148/84 H Blood Pressure Location Rt brachial Position Sitting Pulse 84 Pulse Source Pulse Oximeter Pulse Oximetry (%) 94 Oxygen Delivery Method Room Air Intake Visit Reasons: soar throat Allergies phenobarbital [PHENOBARBITAL] Allergy (Unknown, Verified 06/17/24 08:55) RASH, hives, rash Medication List - Last Reconciled 06/17/24 by Mukund Hinton MD albuterol sulfate 90 mcg/actuation 2 puffs inhalation Q6H PRN 30 days cholecalciferol (vitamin D3) 25 mcg PO DAILY 90 days clotrimazole 1% 1 appl topical BID 10 days escitalopram oxalate (Lexapro) 10 mg PO DAILY fluconazole 150 mg PO DAILY fluticasone furoate-vilanterol 200-25 mcg/dose (Breo Ellipta) 1 inh inhalation DAILY 90 days ibuprofen 200 mg PO Q6H PRN ipratropium-albuterol 0.5 mg-3 mg(2.5 mg base)/3 mL 3 mL inhalation Q6-8H PRN 30 days levothyroxine 125 mcg PO DAILY 90 days lisinopril 30 mg PO DAILY 90 days nystatin 1 mL PO QID 7 days omeprazole 20 mg PO DAILY umeclidinium 62.5 mcg/actuation (Incruse Ellipta) 1 inh inhalation BEDTIME [Updraft machine Use every 6 hrs as needed for shortness of breath/difficulty breathing ] Tobacco use date assessed: 06/17/24 Fall risk assessment: No Falls in past year Last assessed Fall Risk: 06/17/24 Dental Screening Dental Screen Date: 06/17/24 Did you have a dental visit in the last 12 months?: Yes Did you have a dental problem in the last 6 months where you did not have access to dental care?: No Was dental information given to patient?: Patient has dentist HPI soar throat HPI Details Patient is 64-year-old female who has been using her inhalers regularly But recently has started severe sore throat She came in the walk-in clinic on 4th of this month and then 8th of this month And was diagnosed with thrush and was treated with antifungal She is feeling worse Patient says that it is so painful to swallow She does not have a fever or chills Her left ear is also painful On examination it seems as if she has developed a viral illness She has multiple small erythematous papules pharyngeal area And also some erythema behind left ear I am treating her with valacyclovir and small dose of prednisone Percocet sent to be taken for pain along with magic mouthwash Patient is to return next week for follow-up [facility] Medical History Otomycosis of left ear Acute pharyngitis Oral thrush COPD (chronic obstructive pulmonary disease) Hypertension, essential Surgical History History of left hip replacement History of ileostomy History of resection of rectum History of surgery Ovarian mass, left History of total hysterectomy Family History (Reviewed 06/17/24 @ : by Mukund Hinton MD) Father No problems noted. Mother Lymphoma Sister No problems noted. Sister No problems noted. Son No problems noted. Daughter No problems noted. Daughter No problems noted. Other Substance use disorder Social History Housing: Other (mobile home) Patient Tobacco Use Status: Current someday Tobacco user Cigarette Packs Per Day: 0.5 e-Cigarette/Vaping Use: Never Used service: No Current occupational status: retired Cognitive needs: No Hearing needs: No Vision needs: Yes Questionnaire Thrive Questionnaire Date Thrive assessed: 06/17/24 I am a: Patient What is your living situation today?: I have a steady place to live Within the past 12 months, did the food you bought not last and you didn't have the money to get more?: Never true Within the past 12 months, did you worry whether your food would run out before you got money to buy more?: Never true Do you have trouble paying for medicines?: No Do you have trouble getting transportation to medical appointments?: Yes Do you have trouble paying your heating and electricity bill?: No Do you have trouble taking care of your child, family member or friend?: No Do you have trouble with day-to-day activities such as bathing, preparing meals, shopping, managing finances, etc.?: No Are you currently unemployed and looking for a job?: No Are you interested in more education?: No Please select the resources that you would like help with: None Currently or been in a relationship where the following occur: No concerns reported THRIVE Score: 1 AUDIT C Alcohol Use Questionnaire (AUDIT-C) 1. How often do you have a drink containing alcohol?: Monthly or less 2. How many drinks containing alcohol do you have on a typical day when you are drinking?: 1 or 2 3. How often do you have six or more drinks on one occasion?: Never Total Score: 1 Score Reviewed/Action Taken: Yes ADAM-7 AMB Questionnaire ADAM-7 Date ADAM - 7 assessed: 05/05/24 Source: Developed by Drs. Cory Ochoa, Diya Alicia, Virgil Lion and colleagues, with an educational ara from [employer]. Review of Systems Const Denies chills and Denies fever(s) ENT Denies epistaxis and Denies nasal discharge Card Denies chest pain Resp Denies chest congestion, Denies cough and Denies hemoptysis GI Denies diarrhea and Denies nausea Skin/Breast Denies rash Neuro Reports no additional complaints Psych Reports no additional complaints Endo Reports no additional complaints Physical exam (Primary Care) Vital Signs: Last Vital Signs Pulse 84 06/17/24 08:54 BP 148/84 H 06/17/24 08:54 Pulse Ox 94 06/17/24 08:54 Oxygen Delivery Method Room Air 06/17/24 08:54 BMI result Body Mass Index 26.3 Tobacco/Smoking Status: Tobacco use Status Tobacco use date assessed 06/17/24 06/17/24 08:57 Patient Tobacco Use Status Current someday Tobacco 06/17/24 08:57 e-Cigarette/Vaping Use Never Used 06/17/24 08:57 Thrive Assessment: Date of Thrive Assessment Date Thrive assessed 06/17/24 06/17/24 08:57 Currently or been in a relationship where the following occur: No concerns reported Const General: cooperative, comfortable and no acute distress Orientation/consciousness: patient oriented x3 HENMT Other: Multiple pinpoint white papules on erythematous base pharynx Head: Yes normocephalic Head images: 1. Slight erythema behind left ear Eyes General: appearance normal, both eyes and all related structures Neck Neck: Yes supple Resp Effort & Inspection: normal respiratory effort, no cough and no stridor Skin General skin exam: turgor normal Neuro General: patient oriented x3, tone normal and moves all extremities Extrem Right lower extremity: no edema Left lower extremity: no edema Coding Level of Care Code Est Pt Level 4 (15916) Diagnoses Oropharyngeal dysphagia R13.12 Dysphagia type: oropharyngeal phase Viral illness B34.9 Sore throat J02.9 Ear pain, left H92.02 Assessment & Plan Assessment & Plan (1) Difficulty swallowing: Code(s): R13.10 - Dysphagia, unspecified Category: Medical Qualifiers: Dysphagia type: oropharyngeal phase Qualified Code(s): R13.12 - Dysphagia, oropharyngeal phase (2) Viral illness: Code(s): B34.9 - Viral infection, unspecified Category: Medical (3) Sore throat: Code(s): J02.9 - Acute pharyngitis, unspecified Category: Medical (4) Ear pain, left: Code(s): H92.02 - Otalgia, left ear Category: Medical Plan Patient is 64-year-old female who has been using her inhalers regularly But recently has started severe sore throat She came in the walk-in clinic on 4th of this month and then 8th of this month And was diagnosed with thrush and was treated with antifungal She is feeling worse Patient says that it is so painful to swallow She does not have a fever or chills Her left ear is also painful On examination it seems as if she has developed a viral illness She has multiple small erythematous papules pharyngeal area And also some erythema behind left ear I am treating her with valacyclovir and small dose of prednisone Percocet sent to be taken for pain along with magic mouthwash Patient is to return next week for follow-up Medications: New famciclovir 500 mg PO Q8H 7 days 21 tabs 0RF prednisone 10 mg PO DAILY 5 days 5 tabs 0RF oxycodone-acetaminophen 5-325 mg (Percocet) Partial Fill upon patient request. 1 tab PO Q8H 7 days PRN 21 tabs 0RF pain Magic Mouthwash Diphen/Lido/Antacid 1:1:1 Lidocaine Viscous 2 % 80mL; diphenhydramine 12.5 mg/5 mL 80mL; aluminum-mag hydrox-simeth [id number]/5mL 80mL Swishing around mouth and then spit it 10 mL PO TID 10 days 240 mL 0RF
--- OUTSIDE RECORDS SUMMARY | 2024-06-17 09:06 | XMS_ITS | Data Portability ---
Author Organization [place] [facility] Address [facility] [place] [address] Care Team Providers [facility] [place] [facility] Name Role Phone SERENA MERRITT Primary Care Provider Assessment Encounter Date Assessment Date Assessment LastModified by Organization Details LastModified Time 08/22/2019 08/22/2019 Overview/History :T is a 59-year-old female that had recent hip replacement surgery at [facility]. Her roommate during that hospitalization eventually ended up being swabbed and was found to be positive for COVID 19. She has not had any symptoms concerning for COVID-19, no fevers or chills, no respiratory symptoms or GI symptoms. Upon her discharge from the hospital she was instructed to contact [facility] in 1 week's time for COVID testing. [...] today. Time On Scene with Patient: 00:32:06 [email or web address] Not available 08/22/2019 16:53:16 Plan of Treatment Reminders Order Date Submit Date Provider Last Modified By Organization Details Last Modified Time Details Appointments None recorded. Lab SARS CoV 2 RNA (COVID-19), QL, electrocardiograph operator-PCR, respiratory specimen 2019 020 SHERLYN [facility] (Centralized Electronic Ordering - All Locations), Patient Can Go To The Location Of Their Choice, [id number] 0 14:06:10 Referral None recorded. Procedures None [...] virus is thought to spread mainly from [id number]. o Between people who are in close [...] are not readily available, use a hand electrical engineering intern that contains at least 60% alcohol. Cover [...] example to the grocery store or to miner pick other necessities. o Cloth face coverings should [...] available, clean your hands with a hand electrical engineering intern that contains at least 60% alcohol. Clean [...] ? Follow CDC guidance if symptoms develop. [email or web address] Not available 08/22/2019 16:24:47 Reason for Referral None Reported. Results Created Date Observation Date Name Description Value Unit Range Abnormal Flag Note LastModifiedBy Organization Detail LastModifiedTime 08/22/19 20 08/23/2019 SARS CoV 2 RNA (COVI D-19) , QL, electrocardiograph operator-P CR, respi rator y speci men covid-19 [...] perfo rmed by real time PCR [facility] FELICIANO [employer]0 SARS- CoV-2 test. Not Available [facility] (Centralized Electronic Ordering - All Locations) Patient Can Go To The Location Of Their Choice, [id number] 08/23/2019 14:06:10 Result Notes None recorded. Procedures Surgical History Date Name Laterality Status Provider Name and Address Organization Details Recorded Time 08/22/19 20 Medication Review completed STARLA MEDEIROS NP [address], [place], [address], [place] [facility] 08/22/2019 16:50:10 Imaging Results None recorded. Procedure Notes None recorded. Medical Equipment None Reported. Allergies Allergen ID Allergen Name Allergen Category Reaction Reaction Severity Criticality Documentation Date Start Date Code Code System Note Provider Name and Address Organization Details Recorded Time 615407 phenobarb ital medicatio n Not available Not available Not available 08/22/2019 8134 RxNorm STARLA MEDEIROS NP [address], [place], [address], [place] [facility] 0 15:58:18 [...] [degF] 164 mm[Hg] 86 mm[Hg] Not Available [facility] 16:17:21 Social History Question Answer Notes LastModified by Organizat ion Details LastModified Time Tobacco Smoking Status Former Smoker STARLA MEDEIROS NP [address], [place], [address], [place] [facility] 08/22/2019 16:01:21 Do You Have An Advance Directive? No [email or web address] Information not available 08/22/2019 What Is Your Code Status? Full Code [email or web address] Information not available 08/22/2019 Sex: Unknown Functional Status None recorded. Mental Status None recorded. Family History Relationship Description Onset Age of this Age Resolved Age Notes LastModified by Organization Details LastModified Time Mother Malignant neoplastic disease [email or web address] Not available 16:02:12 Medical History Condition Response Diabetes N Coronary Artery Disease N Cancer Y Stroke N Asthma N COPD N High Cholesterol N Pulmonary Embolism N Hypertension Y Kidney Disease N Gynecological HistoryNo gynecological history recorded. Obstetrics History GPAL:G 0 P 0 0 0 0 Past Encounters Encounter ID Performer Location Encounter Start Date Encounter Closed Date Diagnosis/Indication Diagnosis SNOMED-CT Code Diagnosis ICD10 Code Diagnosis Note [id number] STARLA MEDEIROS NP [facility] [address] [place] [address] 08/22/2019 15:56:16 08/23/2019 17:49:58 Exposure to communicable disease 529572346 Z20.828 Health Concerns Section Related Observation LastModified by Organization Detai ls LastModified Time None Recorded Concern Status LastModified by Organization Details LastModified Time None Recorded Advance Directives Directive N: Payers Insurance Date Sequence Insurance Name Policy Number Policy Galvan Covered Member ID Galvan Member ID Guarantor Name 08/22/2019 1 [place] [facility] [id number] Erica Chavez [id number] Ericasheila Chavez 08/22/2019 1 *SELF PAY* Erica Chavez [id number] Erica Scott 08/22/2019 2 [place] [facility] Ericasheila Chavez [id number] Erica Scott Notes Date Note Type Note Provider Name and Address Organization Details Recorded Time 08/22/2019 text/html This is a 59-year-old female that is a new patient [facility]. She has a medical history significant for history of cervical and colorectal cancer, hypertension and osteoarthritis. She recently had hip replacement surgery at [facility] last week. She tells me that she had COVID testing prior to her scheduled surgery as a condition of her surgery. While recovering in the hospital her roommate ended up being tested and was positive for COVID 19. She last had contact with this room mate last Thursday. When being discharged from the hospital she was given the information of [facility] and told to contact us in 1 week for asymptomatic testing. The patient is denying any fevers or chills, no GI or respiratory symptoms. STARLA MEDEIROS NP [address], [place], [address], [place] [facility] 08/22/2019 16:53:26 OBGyn Episode No OBEpisode recorded.
== END 2024-06-17 09:19 | disposition home or self-care (01) ==
LOC: HO.HMCC 08:52
PROVIDERS: PCP Internal Medicine; Visit Provider Internal Medicine
DX: R13.12 Dysphagia, oropharyngeal phase (principal); B34.9 Viral infection, unspecified; J02.9 Acute pharyngitis, unspecified; H92.02 Otalgia, left ear

== ENCOUNTER → 2024-06-17 08:52 | Outpatient (BNVA) | payer MEDICARE, SELFPAY | PROVIDERS: PCP Internal Medicine; Visit Provider Internal Medicine | DX: R13.12 Dysphagia, oropharyngeal phase (principal); B34.9 Viral infection, unspecified; F17.210 Nicotine dependence, cigarettes, uncomplicated; J02.9 Acute pharyngitis, unspecified; H92.02 Otalgia, left ear; Z79.899 Other long term (current) drug therapy | CPT/HCPCS: 99212 ==

== ENCOUNTER 2024-06-21 12:58 | Outpatient (AMB) | payer MEDICARE, SELFPAY ==
[2024-06-21 13:09] VITALS: BP 138/82; PULSE 76; O2SAT 95; BMI 26.2
--- NOTE | 2024-06-21 13:09 | MHC.PC.OV ---
Vital Signs 06/21/24 13:09 Height 5 ft 6 in Weight 162 lb 2 oz BMI 26.2 BP 138/82 Blood Pressure Location Rt brachial Position Sitting Pulse 76 Pulse Source Pulse Oximeter Pulse Oximetry (%) 95 Oxygen Delivery Method Room Air Intake Visit Reasons: f/up Allergies phenobarbital [PHENOBARBITAL] Allergy (Unknown, Verified 06/21/24 13:10) RASH, hives, rash Medication List - Last Reconciled 06/21/24 by Mukund Hinton MD albuterol sulfate 90 mcg/actuation 2 puffs inhalation Q6H PRN 30 days cholecalciferol (vitamin D3) 25 mcg PO DAILY 90 days clotrimazole 1% 1 appl topical BID 10 days escitalopram oxalate (Lexapro) 10 mg PO DAILY famciclovir 500 mg PO Q8H 7 days fluticasone furoate-vilanterol 200-25 mcg/dose (Breo Ellipta) 1 inh inhalation DAILY 90 days ibuprofen 200 mg PO Q6H PRN ipratropium-albuterol 0.5 mg-3 mg(2.5 mg base)/3 mL 3 mL inhalation Q6-8H PRN 30 days levothyroxine 125 mcg PO DAILY 90 days lisinopril 30 mg PO DAILY 90 days Magic Mouthwash Diphen/Lido/Antacid 1:1:1 10 mL PO TID 10 days nystatin 1 mL PO QID 7 days omeprazole 20 mg PO DAILY oxycodone-acetaminophen 5-325 mg (Percocet) 1 tab PO Q8H PRN 7 days prednisone 10 mg PO DAILY 5 days umeclidinium 62.5 mcg/actuation (Incruse Ellipta) 1 inh inhalation BEDTIME [Updraft machine Use every 6 hrs as needed for shortness of breath/difficulty breathing ] Tobacco use date assessed: 06/21/24 Fall risk assessment: No Falls in past year Last assessed Fall Risk: 06/21/24 Dental Screening Dental Screen Date: 06/21/24 Did you have a dental visit in the last 12 months?: Yes Did you have a dental problem in the last 6 months where you did not have access to dental care?: No Was dental information given to patient?: Patient has dentist HPI f/up HPI Details History - The patient is a 64-year-old female presenting with ear pain and follow-up for shingles treatment. - Initially diagnosed with herpes zoster involving the ear canal, confirmed by the presence of blisters and lesions. Behind the ear and left side of scalp - The patient experienced severe pain initially, requiring oxycodone for pain management primarily during nighttime, now reduced to nighttime use only. - Associated symptoms included lesions and blisters in the mouth which have since improved - The ear continues to leak a small amount of liquid, though there is no clear indication of an active bacterial infection. - Concerns about the persistent nerve pain post-lesions were discussed, identified as post-herpetic neuralgia. - The patient has completed her prednisone course and is currently taking famciclovir, with three days remaining Problem List - Herpes Zoster (Shingles) - Oropharyngeal Lesions - Otalgia (Ear Pain) Patient Instructions - Continue taking the remaining famciclovir as prescribed. - Complete the oxycodone regimen as directed with three days remaining. - Report any increase in pain or new symptoms. Review of Systems - General: No fever no chills - Neurological: No headaches no dizziness - Ear nose throat: No sore throat no hearing difficulty - Cardiovascular: No syncope, no chest pain, no palpitations - Gastrointestinal: No nausea vomiting or diarrhea - Endocrine: No polyuria polydipsia no heat intolerance - Genitourinary: No dysuria , no blood in urine Physical Exam - HEENT- Redness observed in the ear, consistent with healing. Healing zoster rash behind the ear Throat within normal limit no more vesicular lesions - General: No acute distress - Neck: Supple - Respiratory system: Able to talk in full sentences, no audible wheeze - Cardiovascular: S1-S2 regular in rate and rhythm - Gastrointestinal: No pain - Extremities: No new findings - SPAGHETTI MACHINE OPERATOR: Alert awake oriented x3 motor sensory intact - Skin: Normal turgor [facility] Medical History Otomycosis of left ear Acute pharyngitis Oral thrush COPD (chronic obstructive pulmonary disease) Hypertension, essential Surgical History History of left hip replacement History of ileostomy History of resection of rectum History of surgery Ovarian mass, left History of total hysterectomy Family History Father No problems noted. Mother Lymphoma Sister No problems noted. Sister No problems noted. Son No problems noted. Daughter No problems noted. Daughter No problems noted. Other Substance use disorder Social History Housing: Other (mobile home) Patient Tobacco Use Status: Current someday Tobacco user Cigarette Packs Per Day: 0.5 e-Cigarette/Vaping Use: Never Used service: No Current occupational status: retired Cognitive needs: No Hearing needs: No Vision needs: Yes Questionnaire PHQ-9 Over the last 2 weeks, how often have you been bothered by any of the following problems? 1. Little interest or pleasure in doing things: not at all 2. Feeling down, depressed, or hopeless: not at all 3. Trouble falling or staying asleep, or sleeping too much: not at all 4. Feeling tired or having little energy: not at all 5. Poor appetite or overeating: not at all 6. Feeling bad about yourself - or that you are a failure or have let yourself or your family down: not at all 7. Trouble concentrating on things, such as reading the newspaper or watching television: not at all 8. Moving or speaking so slowly that other people could have noticed. Or the opposite - being so fidgety or restless that you have been moving around a lot more than usual: not at all 9. Thoughts that you would be better off or of hurting yourself in some way: not at all Total score: 0 Depression Screening Interpretation: Negative Depression Screening Done: Yes 81083 - PHQ-9 Billing: Yes Source: Developed by Drs. Cory Ochoa, Diya Alicia, Virgil Lion and colleagues, with an educational ara from [employer]. Thrive Questionnaire Date Thrive assessed: 06/21/24 I am a: Patient What is your living situation today?: I have a steady place to live Within the past 12 months, did the food you bought not last and you didn't have the money to get more?: Never true Within the past 12 months, did you worry whether your food would run out before you got money to buy more?: Never true Do you have trouble paying for medicines?: No Do you have trouble getting transportation to medical appointments?: Yes Do you have trouble paying your heating and electricity bill?: No Do you have trouble taking care of your child, family member or friend?: No Do you have trouble with day-to-day activities such as bathing, preparing meals, shopping, managing finances, etc.?: No Are you currently unemployed and looking for a job?: No Are you interested in more education?: No Please select the resources that you would like help with: None Currently or been in a relationship where the following occur: No concerns reported THRIVE Score: 1 AUDIT C Alcohol Use Questionnaire (AUDIT-C) 1. How often do you have a drink containing alcohol?: Monthly or less 2. How many drinks containing alcohol do you have on a typical day when you are drinking?: 1 or 2 3. How often do you have six or more drinks on one occasion?: Never Total Score: 1 Score Reviewed/Action Taken: Yes ADAM-7 AMB Questionnaire ADAM-7 Date ADAM - 7 assessed: 05/05/24 Source: Developed by Drs. Cory Ochoa, Diya Alicia, Virgil Lion and colleagues, with an educational ara from [employer]. Physical exam (Primary Care) Vital Signs: Last Vital Signs Pulse 76 06/21/24 13:09 BP 138/82 06/21/24 13:09 Pulse Ox 95 06/21/24 13:09 Oxygen Delivery Method Room Air 06/21/24 13:09 BMI result Body Mass Index 26.2 Tobacco/Smoking Status: Tobacco use Status Tobacco use date assessed 06/21/24 06/21/24 13:11 Patient Tobacco Use Status Current someday Tobacco 06/21/24 13:11 e-Cigarette/Vaping Use Never Used 06/21/24 13:11 PHQ-9: PHQ-9 Score PHQ-9: Total score 0 06/21/24 13:38 Depression Screening Interpretation: Negative Thrive Assessment: Date of Thrive Assessment Date Thrive assessed 06/21/24 06/21/24 13:11 Currently or been in a relationship where the following occur: No concerns reported Coding Level of Care Code Est Pt Level 3 (74132) Diagnoses Ear pain, left H92.02 Herpes zoster without complication B02.9 Herpes zoster complications: without complications Additional Codes PHQ-9 - 67023 - PHQ-9 Billing: Yes ([id number]) Assessment & Plan Assessment & Plan (1) Ear pain, left: Code(s): H92.02 - Otalgia, left ear Category: Medical (2) Herpes zoster: Code(s): B02.9 - Zoster without complications Category: Medical Qualifiers: Herpes zoster complications: without complications Qualified Code(s): B02.9 - Zoster without complications Plan History - The patient is a 64-year-old female presenting with ear pain and follow-up for shingles treatment. - Initially diagnosed with herpes zoster involving the ear canal, confirmed by the presence of blisters and lesions. Behind the ear and left side of scalp - The patient experienced severe pain initially, requiring oxycodone for pain management primarily during nighttime, now reduced to nighttime use only. - Associated symptoms included lesions and blisters in the mouth which have since improved - The ear continues to leak a small amount of liquid, though there is no clear indication of an active bacterial infection. - Concerns about the persistent nerve pain post-lesions were discussed, identified as post-herpetic neuralgia. - The patient has completed her prednisone course and is currently taking famciclovir, with three days remaining Problem List - Herpes Zoster (Shingles) - Oropharyngeal Lesions - Otalgia (Ear Pain) Patient Instructions - Continue taking the remaining famciclovir as prescribed. - Complete the oxycodone regimen as directed with three days remaining. - Report any increase in pain or new symptoms.
== END 2024-06-21 14:19 | disposition home or self-care (01) ==
LOC: HO.HMCC 12:59
PROVIDERS: PCP Internal Medicine; Visit Provider Internal Medicine
DX: H92.02 Otalgia, left ear (principal); B02.9 Zoster without complications

== ENCOUNTER → 2024-06-21 12:58 | Outpatient (BNVA) | payer MEDICARE, SELFPAY | PROVIDERS: PCP Internal Medicine; Visit Provider Internal Medicine | DX: H92.02 Otalgia, left ear (principal); B02.9 Zoster without complications | CPT/HCPCS: 96127; 99212 ==

== ENCOUNTER 2024-07-02 09:15 | Outpatient (AMB) | payer MEDICARE, SELFPAY ==
--- OUTSIDE RECORDS SUMMARY | 2024-07-02 09:17 | XMS_ITS | Data Portability ---
Author Organization [place] - [facility]AC[facility] Address [facility] [place] [address] Care Team Providers Care Energy Control Officer Name Role Phone SERENA MERRITT Primary Care Provider [phone] Assessment Encounter Date Assessment Date Assessment LastModified by Organization Details LastModified Time 08/22/2019 08/22/2019 Overview/History :T is a 59-year-old female that had recent hip replacement surgery at [facility]. Her roommate during that hospitalization eventually ended up being swabbed and was found to be positive for COVID 19. She has not had any symptoms concerning for COVID-19, no fevers or chills, no respiratory symptoms or GI symptoms. Upon her discharge from the hospital she was instructed to contact [facility] in 1 week's time for COVID [...] today. Time On Scene with Patient: 00:32:06 [email or web address] Not available 08/22/2019 16:53:16 Plan of Treatment Reminders Order Date Submit Date Provider Last Modified By Organization Details Last Modified Time Details Appointments None recorded. Lab SARS CoV 2 RNA (COVID-19), QL, cloth baler-PCR, respiratory specimen 2019 020 SHERLYN [facility] (Centralized Electronic Ordering - All Locations), Patient Can Go To The Location Of Their Choice, [id number] 0 14:06:10 Referral None recorded. Procedures None [...] virus is thought to spread mainly from [id number]. o Between people who are in close [...] are not readily available, use a hand section gang worker that contains at least 60% alcohol. Cover [...] example to the grocery store or to greens picker other necessities. o Cloth face coverings [...] available, clean your hands with a hand section gang worker that contains at least 60% alcohol. Clean [...] ? Follow CDC guidance if symptoms develop. [email or web address] Not available 08/22/2019 16:24:47 Reason for Referral None Reported. Results Created Date Observation Date Name Description Value Unit Range Abnormal Flag Note LastModifiedBy Organization Detail LastModifiedTime 08/22/19 20 08/23/2019 SARS CoV 2 RNA (COVI D-19) , QL, cloth baler-P CR, respi rator y speci men covid-19 [...] perfo rmed by real time PCR [facility] FELICIANO [email or web address] SARS- CoV-2 test. Not Available [facility] (Centralized Electronic Ordering - All Locations) Patient Can Go To The Location Of Their Choice, [id number] 08/23/2019 14:06:10 Result Notes None recorded. Procedures Surgical History Date Name Laterality Status Provider Name and Address Organization Details Recorded Time 08/22/19 20 Medication Review completed STARLA MEDEIROS NP [address], [place], [address], [place] [facility] 08/22/2019 16:50:10 Imaging Results None recorded. Procedure Notes None recorded. Medical Equipment None Reported. Allergies Allergen ID Allergen Name Allergen Category Reaction Reaction Severity Criticality Documentation Date Start Date Code Code System Note Provider Name and Address Organization Details Recorded Time [id number] phenobarb ital medicatio n Not available Not available Not available 08/22/2019 8134 RxNorm STARLA MEDEIROS NP [address], [place], [address], [place] [facility] 0 15:58:18 [...] Respiratory rate Heart rate Body temperature Systolic And Diastolic Provider Name and Address Organization Details Last Updated DateTime 0 99 % 99 % 26 /min 76 /min 99 [degF] 164/86 mm[Hg] Not Available [facility] 0 16:17:21 Social History Question Answer Notes LastModified by Organizat ion Details LastModified Time Tobacco Smoking Status Former Smoker STARLA MEDEIROS NP [address], [place], [address], [place] [facility] 08/22/2019 16:01:21 Do You Have An Advance Directive? No Information not available 08/22/2019 What Is Your Code Status? Full Code [email or web address] Information not available 08/22/2019 Sex: Unknown Functional Status None recorded. Mental Status None recorded. Family History Relationship Description Onset Age of this Age Resolved Age Notes LastModified by Organization Details LastModified Time Mother Malignant neoplastic disease [email or web address] Not available 16:02:12 Medical History Condition Response [...] SNOMED-CT Code Diagnosis ICD10 Code Diagnosis Note [id number] STARLA MEDEIROS NP [facility] [address] [place] [address] 08/22/2019 15:56:16 08/23/2019 17:49:58 Exposure to communicable disease 188066241 Z20.828 Health Concerns Section Related Observation LastModified by Organization Detai ls LastModified Time None Recorded Concern Status LastModified by Organization Details LastModified Time None Recorded Advance Directives Directive N: Payers Insurance Date Sequence Insurance Name Policy Number Policy Galvan Covered Member ID Galvan Member ID Guarantor Name 08/22/2019 1 [facility] [id number] Ericasheila Chavez [id number] Erica Scott 08/22/2019 1 *SELF PAY* Erica Chavez [id number] Erica Scott 08/22/2019 2 [place] [facility] Erica Chavez [id number] Ericashiela Chavez Notes Date Note Type Note Provider Name and Address Organization Details Recorded Time 08/22/2019 text/html This is a 59-year-old female that is a new patient [facility]. She has a medical history significant for history of cervical and colorectal cancer, hypertension and osteoarthritis. She recently had hip replacement surgery at [facility] last week. She tells me that she had COVID testing prior to her scheduled surgery as a condition of her surgery. While recovering in the hospital her roommate ended up being tested and was positive for COVID 19. She last had contact with this room mate last Thursday. When being discharged from the hospital she was [facility] and told to contact us in 1 week for asymptomatic testing. The patient is denying any fevers or chills, no GI or respiratory symptoms. STARLA MEDEIROS NP [address], [place], [address], [place] [facility] 08/22/2019 16:53:26 OBGyn Episode No OBEpisode recorded.
[2024-07-02 09:18] VITALS: BP 132/80; PULSE 65; TEMP 36.6; O2SAT 96; BMI 26.1
--- NOTE | 2024-07-02 09:18 | AM.OFFWIN_ITS ---
Intake Vital Signs 07/02/24 09:18 Height 5 ft 6 in Weight 162 lb BMI 26.1 BP 132/80 Blood Pressure Location Rt brachial Position Sitting Pulse 65 Pulse Source Pulse Oximeter Temp 97.8 F Temp Source Oral Pulse Oximetry (%) 96 Oxygen Delivery Method Room Air Intake Visit Reasons: EP-Lt ear shingles Patient Tobacco Use Status: Current someday Tobacco user Allergies phenobarbital [PHENOBARBITAL] Allergy (Unknown, Verified 07/02/24 09:18) RASH, hives, rash Do you need a note to return to daycare/school/sports/work: No HPI EP-Lt ear shingles HPI Details Patient is a 64-year-old female who comes to the walk-in clinic complaining of persistent severe left ear pain, after cristine shingles to that dermatome about a month ago. She has had follow-up from primary care since her diagnosis, and was last evaluated about a week and a half ago. At that point, she was still having some discharge from the external ear lesions, with no active bacterial infection. Per her note, she was told that her persistent nerve pain was from post herpetic neuralgia. She had been prescribed oxycodone at night as needed. She reports that she is still not able to tolerate even light pressure to the ear area, and vehemently states I am not leaving without more oxycodone for my pain. She had had has had resolution of the lesions to the left scalp and in the mouth. She is no longer taking the mouthwash, And she completed the antiviral famciclovir course. She denies fever or chills, dizziness or weakness, headache, nausea vomiting or diarrhea, generalized weakness, myalgias or malaise, or other significant associated symptoms. [facility] Medical History Otomycosis of left ear Acute pharyngitis Oral thrush COPD (chronic obstructive pulmonary disease) Hypertension, essential Surgical History History of left hip replacement History of ileostomy History of resection of rectum History of surgery Ovarian mass, left History of total hysterectomy Family History Father No problems noted. Mother Lymphoma Sister No problems noted. Sister No problems noted. Son No problems noted. Daughter No problems noted. Daughter No problems noted. Other Substance use disorder Social History Housing: Other (mobile home) Patient Tobacco Use Status: Current someday Tobacco user Cigarette Packs Per Day: 0.5 e-Cigarette/Vaping Use: Never Used service: No Current occupational status: retired Cognitive needs: No Hearing needs: No Vision needs: Yes Review of Systems Const All systems reviewed & are unremarkable except as noted in HPI and below Physical Exam Vital Signs: Last Vital Signs Temp 97.8 F 07/02/24 09:18 Pulse 65 07/02/24 09:18 BP 132/80 07/02/24 09:18 Pulse Ox 96 07/02/24 09:18 Oxygen Delivery Method Room Air 07/02/24 09:18 BMI result Body Mass Index 26.1 HEENT Head: Yes scalp lesion ( no further visible scalp lesions) Ears: Abnormal EAC present ( Extensive debris/cerumen to the left ear canal) and unable to visualize TM Assessment & Plan Assessment & Plan (1) HZV (herpes zoster virus) post herpetic neuralgia: Code(s): B02.29 - Other postherpetic nervous system involvement Plan: patient is a 64-year-old female who still complains of pain from post herpetic neuralgia, following shingles outbreak about a month ago. she still complains of severe sensitivity to the left ear, and being unable to touch the area, which makes sleeping very difficult. She told me that she would not leave the office without more prednisone, and while this was a red flag for narcotics, I do believe that she is in severe pain and that this was the reason for her behavior. We discussed that it is more appropriate for her to start on a regim en of gabapentin for post herpetic neuralgia, and this was written for her today. She has had used this in the past with cancer treatment nerve pain, and reports that she is only worried that it will take a while for the gabapentin to resolve her symptoms. Therefore I wrote her for 300 mg for b.i.d. use, but she can still take nighttime Percocet sparingly if still unable to sleep Due to severe pain. I wrote her a 7 day course of 1 dose at night if needed for severe pain only. We did discuss that she should not combine the medication at the same time however, as it could make her too sedated and she could be a risk of falling. She reports that it is just her and her dogs in a trailer at home, and while she does not have stairs, she does not have anyone to help her with her balance. She also complains of feeling obstruction to the left ear, and she tried to irrigate it in the shower today. On evaluation, her lesions are healing, although she has extensive debris in her left canal which obstructs her TM. We irrigated this today with some warm water, and she had about 80% of evacuation, which reveals beefy red canal. We discussed keeping it dry, and that it should continue to heal. She should have follow up in a few weeks with PCP to see if her pain is stabilizing, and she can have the ear canal visualized again at that point. Follow up sooner as needed. Medications: New gabapentin do not drive or do safety sensitive duties for 8 hours after taking this me dication, until sedating affects wear off. do not combine with other sedating medication 300 mg PO BID PRN 40 caps 0RF post herpetic neuralgia Changed From oxycodone-acetaminophen 5-325 mg (Percocet) Partial Fill upon patient request. 1 tab PO Q8H 7 days PRN 21 tabs 0RF pain To oxycodone-acetaminophen 5-325 mg (Percocet) Partial Fill upon patient request. do not combine with other sedating medication. do not drive or do safety sensitive duties for 8 hours after taking 1 tab PO .QHS PRN 7 tabs 0RF acute severe pain post herpetic neuralgia 7 days Discontinued Magic Mouthwash Diphen/Lido/Antacid 1:1:1 Lidocaine Viscous 2 % 80mL; diphenhydramine 12.5 mg/5 mL 80mL; aluminum-mag hydrox-simeth [id number]/5mL 80mL Swishing around mouth and then spit it Discontinued Reason: Patient Completed Course 10 mL PO TID 10 days 240 mL 0RF Coding Level of Care Code Est Pt Level 4 (93825) Diagnoses HZV (herpes zoster virus) post herpetic neuralgia B02.29
== END 2024-07-02 11:44 | disposition home or self-care (01) ==
LOC: HO.HMCWIC 09:15
PROVIDERS: PCP Internal Medicine; Visit Provider Physician Assistant Medical
DX: B02.29 Other postherpetic nervous system involvement (principal)

== ENCOUNTER → 2024-07-02 09:15 | Outpatient (BNVA) | payer MEDICARE, SELFPAY | PROVIDERS: PCP Internal Medicine; Visit Provider Physician Assistant Medical | DX: B02.29 Other postherpetic nervous system involvement (principal) | CPT/HCPCS: 99212 ==

== ENCOUNTER 2024-07-14 08:31 | Outpatient (AMB) | payer MEDICARE, SELFPAY ==
--- NOTE | 2024-07-14 08:43 | MHC.PC.OV ---
Intake Visit Reasons: Discussion regarding ENT and ear pain, iPhone Allergies phenobarbital [PHENOBARBITAL] Allergy (Unknown, Verified 07/02/24 09:18) RASH, hives, rash Medication List - Last Reconciled 07/14/24 by Mukund Hinton MD albuterol sulfate 90 mcg/actuation 2 puffs inhalation Q6H PRN 30 days cholecalciferol (vitamin D3) 25 mcg PO DAILY 90 days clotrimazole 1% 1 appl topical BID 10 days escitalopram oxalate (Lexapro) 10 mg PO DAILY fluticasone furoate-vilanterol 200-25 mcg/dose (Breo Ellipta) 1 inh inhalation DAILY 90 days gabapentin 300 mg PO BID PRN ibuprofen 200 mg PO Q6H PRN ipratropium-albuterol 0.5 mg-3 mg(2.5 mg base)/3 mL 3 mL inhalation Q6-8H PRN 30 days levothyroxine 125 mcg PO DAILY 90 days lisinopril 30 mg PO DAILY 90 days nystatin 1 mL PO QID 7 days omeprazole 20 mg PO DAILY oxycodone-acetaminophen 5-325 mg (Percocet) 1 tab PO .QHS PRN 7 days umeclidinium 62.5 mcg/actuation (Incruse Ellipta) 1 inh inhalation BEDTIME [Updraft machine Use every 6 hrs as needed for shortness of breath/difficulty breathing ] Tobacco use date assessed: 06/21/24 Dental Screening Dental Screen Date: 06/21/24 HPI Discussion regarding ENT and ear pain, iPhone HPI Details History - The patient is a 64-year-old female presenting with postherpetic neuralgia. - Pain reported as severe, sharp, and notably affecting the Left ear ; exacerbated at night, impairing sleep. - Pain described as persisting with sharp episodes, most intense at night, leading to disrupted sleep around midnight to 1:00 AM. - Currently experiencing pain that impacts the ability to wear glasses and triggers awakening at night. - Grml-gty-ahqcycm drops provide temporary relief, but pain persists. - Management with gabapentin and gjlg-rqa-qiaeswx analgesics such as Tylenol and ibuprofen, noting gastrointestinal distress with the latter. - Gabapentin is reported to induce side effects that prevent daytime usage; primary administration at 6:00 PM results in inadequate pain control during night hours. - Fear of persistence of the condition and inquiry about duration and prognosis. Medical History: - History of management with gabapentin for neuropathic pain. Problem List - Postherpetic Neuralgia Patient Instructions - Take gabapentin at 6:00 PM every day. - Use Percocet at midnight or upon waking due to pain. - Take an additional Percocet four to six hours later if needed. - Ibuprofen is permissible during the day for pain management. - Discontinue Tylenol to alleviate stomach discomfort. - Follow-up with ENT , new urgent ref placed Review of Systems - General: No fever no chills - Neurological: No headaches no dizziness - Ear nose throat: No sore throat no hearing difficulty - Cardiovascular: No syncope, no chest pain, no palpitations - Gastrointestinal: No nausea vomiting or diarrhea [facility] Medical History Otomycosis of left ear Acute pharyngitis Oral thrush COPD (chronic obstructive pulmonary disease) Hypertension, essential Surgical History History of left hip replacement History of ileostomy History of resection of rectum History of surgery Ovarian mass, left History of total hysterectomy Family History Father No problems noted. Mother Lymphoma Sister No problems noted. Sister No problems noted. Son No problems noted. Daughter No problems noted. Daughter No problems noted. Other Substance use disorder Social History Housing: Other (mobile home) Patient Tobacco Use Status: Current someday Tobacco user Cigarette Packs Per Day: 0.5 e-Cigarette/Vaping Use: Never Used service: No Current occupational status: retired Cognitive needs: No Hearing needs: No Vision needs: Yes Questionnaire Thrive Questionnaire Date Thrive assessed: 04/05/24 I am a: Patient What is your living situation today?: I have a steady place to live Within the past 12 months, did the food you bought not last and you didn't have the money to get more?: Never true Within the past 12 months, did you worry whether your food would run out before you got money to buy more?: Never true Do you have trouble paying for medicines?: No Do you have trouble getting transportation to medical appointments?: Yes Do you have trouble paying your heating and electricity bill?: No Do you have trouble taking care of your child, family member or friend?: No Do you have trouble with day-to-day activities such as bathing, preparing meals, shopping, managing finances, etc.?: No Are you currently unemployed and looking for a job?: No Are you interested in more education?: No Please select the resources that you would like help with: None Currently or been in a relationship where the following occur: No concerns reported THRIVE Score: 1 ADAM-7 AMB Questionnaire ADAM-7 Date ADAM - 7 assessed: 05/05/24 Source: Developed by Drs. Cory Ochoa, Diya Alicia, Virgil Lion and colleagues, with an educational ara from [employer]. Physical exam (Primary Care) Tobacco/Smoking Status: Tobacco use Status Tobacco use date assessed 06/21/24 07/14/24 08:43 Patient Tobacco Use Status Current someday Tobacco 07/14/24 08:43 e-Cigarette/Vaping Use Never Used 07/14/24 08:43 Thrive Assessment: Date of Thrive Assessment Date Thrive assessed 04/05/24 07/14/24 08:43 Currently or been in a relationship where the following occur: No concerns reported Telehealth Telehealth Telehealth Platform: [facility] Location of provider rendering services: practice address Location of patient: address on file Patient Identification confirmed using: Name, : Yes Telehealth method: video Patient verbally consented to treatment: Yes Patient verbally consented to billing insurance company: Yes Patient informed of any privacy concerns related to visit: Yes Minutes spent on Phone/Video with Pt.: 30 Coding Level of Care Code Tele Est Pt Level 4 (11194) Diagnoses Acute pain of left ear H92.02 Laterality: left Post herpetic neuralgia B02.29 Pain management R52 Difficulty sleeping G47.9 In distress Z78.9 Assessment & Plan Assessment & Plan (1) Acute otalgia: Code(s): H92.09 - Otalgia, unspecified ear Category: Medical Qualifiers: Laterality: left Qualified Code(s): H92.02 - Otalgia, left ear (2) Post herpetic neuralgia: Code(s): B02.29 - Other postherpetic nervous system involvement Category: Medical (3) Pain management: Code(s): R52 - Pain, unspecified Category: Medical (4) Difficulty sleeping: Code(s): G47.9 - Sleep disorder, unspecified Category: Medical (5) In distress: Code(s): Z78.9 - Other specified health status Category: Medical Plan History - The patient is a 64-year-old female presenting with postherpetic neuralgia. - Pain reported as severe, sharp, and notably affecting the Left ear ; exacerbated at night, impairing sleep. - Pain described as persisting with sharp episodes, most intense at night, leading to disrupted sleep around midnight to 1:00 AM. - Currently experiencing pain that impacts the ability to wear glasses and triggers awakening at night. - Ybuc-wft-ykmfsml drops provide temporary relief, but pain persists. - Management with gabapentin and pxkp-qqe-rlijdqe analgesics such as Tylenol and ibuprofen, noting gastrointestinal distress with the latter. - Gabapentin is reported to induce side effects that prevent daytime usage; primary administration at 6:00 PM results in inadequate pain control during night hours. - Fear of persistence of the condition and inquiry about duration and prognosis. Medical History: - History of management with gabapentin for neuropathic pain. Problem List - Postherpetic Neuralgia Patient Instructions - Take gabapentin at 6:00 PM every day. - Use Percocet at midnight or upon waking due to pain. - Take an additional Percocet four to six hours later if needed. - Ibuprofen is permissible during the day for pain management. - Discontinue Tylenol to alleviate stomach discomfort. - Follow-up with ENT , new urgent ref placed Orders: Referrals Ear/Nose/Throat Referral H92.09 - Otalgia, unspecified ear Medications: Changed From oxycodone-acetaminophen 5-325 mg (Percocet) Partial Fill upon patient request. do not combine with other sedating medication. do not drive or do safety sensitive duties for 8 hours after taking 1 tab PO .QHS 7 days PRN 7 tabs 0RF acute severe pain post herpetic neuralgia To oxycodone-acetaminophen 5-325 mg (Percocet) Partial Fill upon patient request. do not combine with other sedating medication. do not drive or do safety sensitive duties for 8 hours after taking 1 tab PO BID PRN 60 tabs 0RF acute severe pain post herpetic neuralgia 30 days
--- OUTSIDE RECORDS SUMMARY | 2024-07-14 08:48 | XMS_ITS | Data Portability ---
Author Organization [place] [facility] Address [place] [address] Care Team Providers Care Account Management Assistant Name Role Phone SERENA MERRITT Primary Care Provider Assessment Encounter Date Assessment Date Assessment LastModified by Organization Details LastModified Time 08/22/2019 08/22/2019 Overview/History :T is a 59-year-old female that had recent hip replacement surgery at [facility]. Her roommate during that hospitalization eventually ended up being swabbed and was found to be positive for COVID 19. She has not had any symptoms concerning for COVID-19, no fevers or chills, no respiratory symptoms or GI symptoms. Upon her discharge from the hospital she was instructed to contact [facility] in 1 week's time for COVID testing. [...] today. Time On Scene with Patient: 00:32:06 [email or web address] Not available 08/22/2019 16:53:16 Plan of Treatment Reminders Order Date Submit Date Provider Last Modified By Organization Details Last Modified Time Details Appointments None recorded. Lab SARS CoV 2 RNA (COVID-19), QL, international exchange coordinator-PCR, respiratory specimen 2019 020 SHERLYN [facility] (Centralized Electronic Ordering - All Locations), Patient Can Go To The Location Of Their Choice, [id number] 0 14:06:10 Referral None recorded. Procedures None [...] virus is thought to spread mainly from [id number]. o Between people who are in close [...] are not readily available, use a hand piano regulator that contains at least 60% alcohol. Cover [...] example to the grocery store or to picker and sorter load and unload other necessities. o Cloth face coverings should [...] available, clean your hands with a hand piano regulator that contains at least 60% alcohol. Clean [...] ? Follow CDC guidance if symptoms develop. [email or web address] Not available 08/22/2019 16:24:47 Reason for Referral None Reported. Results Created Date Observation Date Name Description Value Unit Range Abnormal Flag Note LastModifiedBy Organization Detail LastModifiedTime 08/22/19 20 08/23/2019 SARS CoV 2 RNA (COVI D-19) , QL, international exchange coordinator-P CR, respi rator y speci men covid-19 PCR overall result (neg) normal NEGAT BINDU 2019- novel Coron aviru s (2018 -nCoV ) not detec aracelis by real- time RT-PC R. Note: If clini atn suspi cion for COVID -19 is high, [...] perfo rmed by real time PCR [facility] FELICIANO [facility] SARS- CoV-2 test. Not Available [facility] (Centralized Electronic Ordering - All Locations) Patient Can Go To The Location Of Their Choice, [id number] 08/23/2019 14:06:10 Result Notes None recorded. Procedures Surgical History Date Name Laterality Status Provider Name and Address Organization Details Recorded Time 08/22/19 20 Medication Review completed STARLA MEDEIROS NP [address], [place], [address], [place] [facility] 08/22/2019 16:50:10 Imaging Results None recorded. Procedure Notes None recorded. Medical Equipment None Reported. Allergies Allergen ID Allergen Name Allergen Category Reaction Reaction Severity Criticality Documentation Date Start Date Code Code System Note Provider Name and Address Organization Details Recorded Time [id number] phenobarb ital medicatio n Not available Not available Not available 08/22/2019 8134 RxNorm STARLA MEDEIROS NP [address], [place], [address], [place] [facility] 15:58:18 [...] [degF] 164 mm[Hg] 86 mm[Hg] Not Available [facility] 16:17:21 Social History Question Answer Notes LastModified by Organizat ion Details LastModified Time Tobacco Smoking Status Former Smoker STARLA MEDEIROS NP [address], [place], [address], [place] [facility] 08/22/2019 16:01:21 Do You Have An Advance Directive? No [email or web address] Information not available 08/22/2019 What Is Your Code Status? Full Code [email or web address] Information not available 08/22/2019 Sex: Unknown Functional Status None recorded. Mental Status None recorded. Family History Relationship Description Onset Age of this Age Resolved Age Notes LastModified by Organization Details LastModified Time Mother Malignant neoplastic disease [email or web address] Not available 16:02:12 Medical History Condition Response [...] SNOMED-CT Code Diagnosis ICD10 Code Diagnosis Note [id number] STARLA MEDEIROS NP [facility] [address] [place] [address] 08/22/2019 15:56:16 08/23/2019 17:49:58 Exposure to communicable disease [id number] Z20.828 Health Concerns Section Related Observation LastModified by Organization Detai ls LastModified Time None Recorded Concern Status LastModified by Organization Details LastModified Time None Recorded Advance Directives Directive N: Payers Insurance Date Sequence Insurance Name Policy Number Policy Galvan Covered Member ID Galvan Member ID Guarantor Name 08/22/2019 1 [facility] [id number] Erica Scott [id number] Erica Scott 08/22/2019 1 *SELF PAY* Erica Chavez [id number] Erica Scott 08/22/2019 2 [place] [facility] Erica Chavez [id number] Ericasheila Chavez Notes Date Note Type Note Provider Name and Address Organization Details Recorded Time 08/22/2019 text/html This is a 59-year-old female that is a new patient [employer]. She has a medical history significant for history of cervical and colorectal cancer, hypertension and osteoarthritis. She recently had hip replacement surgery at [facility] last week. She tells me that she had COVID testing prior to her scheduled surgery as a condition of her surgery. While recovering in the hospital her roommate ended up being tested and was positive for COVID 19. She last had contact with this room mate last Thursday. When being discharged from the hospital [facility] and told to contact us in 1 week for asymptomatic testing. The patient is denying any fevers or chills, no GI or respiratory symptoms. STARLA MEDEIROS NP [address], [place], [address], [place] [facility] 08/22/2019 16:53:26 OBGyn Episode No OBEpisode recorded.
== END 2024-07-14 08:45 | disposition home or self-care (01) ==
LOC: HO.HMCC 08:31
PROVIDERS: PCP Internal Medicine; Visit Provider Internal Medicine
DX: H92.02 Otalgia, left ear (principal); B02.29 Other postherpetic nervous system involvement; R52 Pain, unspecified; G47.9 Sleep disorder, unspecified; Z78.9 Other specified health status

== ENCOUNTER → 2024-07-14 08:31 | Outpatient (BNVA) | payer MEDICARE, SELFPAY | PROVIDERS: PCP Internal Medicine; Visit Provider Internal Medicine | DX: Z13.89 Encounter for screening for other disorder (principal) ==

== ENCOUNTER 2024-08-03 08:32 | Outpatient (AMB) | payer MEDICARE, SELFPAY ==
--- NOTE | 2024-08-03 08:38 | A.OFFPC_ITS ---
Vital Signs 08/03/24 08:40 Height 5 ft 6 in Weight 156 lb BMI 25.2 BP 126/60 Blood Pressure Location Rt brachial Position Sitting Respiration 15 Pulse 84 Pulse Source Pulse Oximeter Temp 98.7 F Temp Source Oral Pulse Oximetry (%) 95 Oxygen Delivery Method Room Air Intake Visit Reasons: 4m follow up Allergies phenobarbital (PHENOBARBITAL) Allergy (Unknown, Verified 08/03/24 08:39) RASH, hives, rash Medication List - Last Reconciled 08/03/24 by Mukund Hinton MD albuterol sulfate 90 mcg/actuation 2 puffs inhalation Q6H PRN 30 days cholecalciferol (vitamin D3) 25 mcg PO DAILY 90 days escitalopram oxalate (Lexapro) 10 mg PO DAILY fluticasone furoate-vilanterol 200-25 mcg/dose (Breo Ellipta) 1 inh inhalation DAILY 90 days gabapentin 300 mg PO BID PRN ibuprofen 200 mg PO Q6H PRN ipratropium-albuterol 0.5 mg-3 mg(2.5 mg base)/3 mL 3 mL inhalation Q6-8H PRN 30 days levothyroxine 125 mcg PO DAILY 90 days lisinopril 30 mg PO DAILY 90 days omeprazole 20 mg PO DAILY oxycodone-acetaminophen 5-325 mg (Percocet) 1 tab PO BID PRN 30 days umeclidinium 62.5 mcg/actuation (Incruse Ellipta) 1 inh inhalation BEDTIME [Updraft machine Use every 6 hrs as needed for shortness of breath/difficulty breathing ] Tobacco use date assessed: 08/03/24 Fall risk assessment: No Falls in past year Last assessed Fall Risk: 08/03/24 Dental Screening Dental Screen Date: 08/03/24 Did you have a dental visit in the last 12 months?: Yes Did you have a dental problem in the last 6 months where you did not have access to dental care?: No Was dental information given to patient?: Patient has dentist HPI 4m follow up HPI Details History - The patient is a 64-year-old female pr esenting with ongoing symptoms related to shingles. - Shingles: Pain has almost resolved bu t still have difficulty left ear especially if sleeps with a fan on - she has stopped taking gabapentin resendez anisha still take Percocet if needed, no refill was provided this visit - The patient has not received the shing les vaccine and was advised to get vaccinated once symptoms subside. - Hypertension: The patient is on Lisino pril 30 mg for blood pressure management, with a current reading of 126/60 mmHg. - Hypothyroidism: The patient is taking Levothyroxine 125 mcg. - GERD: The patient is on Omeprazole for acid reflux management. - COPD: The patient uses Incruse Ellipta sparingly due to cost and has an Updraft machine as a backup. - Vitamin D deficiency: The patient is t aking supplements for low vitamin D levels. - Preventative care: The patient was adv ised to receive the pneumonia vaccine and to check vaccination records at the pharmacy. Problem List - post herpetic neuralgia left scalp - Hypertension - Hypothyroidism - Gastroesophageal Reflux Disease (GERD) - Chronic Obstructive Pulmonary Disease (COPD) - Vitamin D deficiency - she has noticed a raised area on the r ight side of scalp On examination it seems to be discolored mole that need to be evaluated by Dermatology Patient Instructions - Schedule an appointment with a dermato logist for the scalp bump. - Contact the ear, nose, and throat spec ialist if no response is received. - Get the shingles vaccine once symptoms have subsided. - Check vaccination records at the [facility] and consider getting the pneumonia vaccine. - Follow up in three months to ensure re turn to baseline health. - continue medications Review of Systems - General: No fever no chills - Neurological: No headaches no dizziness - Ear nose throat: No sore throat no hearing difficulty - Cardiovascular: No syncope, no chest pain, no palpitations - Gastrointestinal: No nausea vomiting or diarrhea - Endocrine: No polyuria polydipsia no heat intolerance - Genitourinary: No dysuria , no blood in urine Physical Exam General: No acute distress HEENT: Within normal limit Neck: Supple Respiratory system: Lungs are clear Cardiovascular: S1-S2 regular in rate and rhythm, blood pressure 126/60 Gastrointestinal: No pain Extremities: No new findings NEURO OPHTHALMOLOGIST: Alert awake oriented x3 motor sensory intact Skin: Normal turgor, discolored area right parietal that need to be evaluated by Dermatology [facility] Medical History Otomycosis of left ear Acute pharyngitis Oral thrush COPD (chronic obstructive pulmonary disease) Hypertension, essential Surgical History History of left hip replacement History of ileostomy History of resection of rectum History of surgery Ovarian mass, left History of total hysterectomy Family History Father No problems noted. Mother Lymphoma Sister No problems noted. Sister No problems noted. Son No problems noted. Daughter No problems noted. Daughter No problems noted. Other Substance use disorder Social History Housing: Other (mobile home) Patient Tobacco Use Status: Current someday Tobacco user Cigarette Packs Per Day: 0.5 e-Cigarette/Vaping Use: Never Used service: No Current occupational status: retired Cognitive needs: No Hearing needs: No Vision needs: Yes Questionnaire Thrive Questionnaire Date Thrive assessed: 04/05/24 I am a: Patient What is your living situation today?: I have a steady place to live Within the past 12 months, did the food you bought not last and you didn't have the money to get more?: Never true Within the past 12 months, did you worry whether your food would run out before you got money to buy more?: Never true Do you have trouble paying for medicines?: No Do you have trouble getting transportation to medical appointments?: Yes Do you have trouble paying your heating and electricity bill?: No Do you have trouble taking care of your child, family member or friend?: No Do you have trouble with day-to-day activities such as bathing, preparing meals, shopping, managing finances, etc.?: No Are you currently unemployed and looking for a job?: No Are you interested in more education?: No Please select the resources that you would like help with: None Currently or been in a relationship where the following occur: No concerns reported THRIVE Score: 1 ADAM-7 AMB Questionnaire ADAM-7 Date ADMA - 7 assessed: 05/05/24 Source: Developed by Drs. Cory Ochoa, Diya Alicia, Virgil Lion and colleagues, with an educational ara from [employer]. Physical exam (Primary Care) Vital Signs: Last Vital Signs Temp 98.7 F 08/03/24 08:40 Pulse 84 08/03/24 08:40 Resp 15 08/03/24 08:40 BP 126/60 08/03/24 08:40 Pulse Ox 95 08/03/24 08:40 Oxygen Delivery Method Room Air 08/03/24 08:40 BMI result Body Mass Index 25.2 Tobacco/Smoking Status: Tobacco use Status Tobacco use date assessed 08/03/24 08/03/24 08:44 Patient Tobacco Use Status Current someday Tobacco 08/03/24 08:44 e-Cigarette/Vaping Use Never Used 08/03/24 08:44 Thrive Assessment: Date of Thrive Assessment Date Thrive assessed 04/05/24 08/03/24 08:44 Currently or been in a relationship where the following occur: No concerns reported Coding Level of Care Code Est Pt Level 4 (71012) Complex EM visit Add On G2211 Diagnoses Hypertension, essential I10 Depression, major, single episode, moderate F32.1 Chronic obstructive pulmonary disease, unspecified COPD type J44.9 COPD type: unspecified COPD Other specified hypothyroidism E03.8 Chronic GERD K21.9 Vitamin D deficiency E55.9 Post herpetic neuralgia B02.29 Assessment & Plan Assessment & Plan (1) Hypertension, essential: Code(s): I10 - Essential (primary) hypertension Category: Medical (2) Depression, major, single episode, moderate: Code(s): F32.1 - Major depressive disorder, single episode, moderate Category: Medical (3) COPD (chronic obstructive pulmonary disease): Code(s): J44.9 - Chronic obstructive pulmonary disease, unspecified Category: Medical Qualifiers: COPD type: unspecified COPD Qualified Code(s): J44.9 - Chronic obstructive pulmonary disease, unspecified (4) Other specified hypothyroidism: Code(s): E03.8 - Other specified hypothyroidism Category: Medical (5) Chronic GERD: Code(s): K21.9 - Gastro-esophageal reflux disease without esophagitis Category: Medical (6) Vitamin D deficiency: Code(s): E55.9 - Vitamin D deficiency, unspecified Category: Medical (7) Post herpetic neuralgia: Code(s): B02.29 - Other postherpetic nervous system involvement Category: Medical Plan History - The patient is a 64-year-old female presenting with ongoing symptoms related to shingles. - Shingles: Pain has almost resolved but still have difficulty left ear especially if sleeps with a fan on - she has stopped taking gabapentin however still take Percocet if needed, no refill was provided this visit - The patient has not received the shingles vaccine and was advised to get vaccinated once symptoms subside. - Hypertension: The patient is on Lisinopril 30 mg for blood pressure management, with a current reading of 126/60 mmHg. - Hypothyroidism: The patient is taking Levothyroxine 125 mcg. - GERD: The patient is on Omeprazole for acid reflux management. - COPD: The patient uses Incruse Ellipta sparingly due to cost and has an Updraft machine as a backup. - Vitamin D deficiency: The patient is taking supplements for low vitamin D levels. - Preventative care: The patient was advised to receive the pneumonia vaccine and to check vaccination records at the pharmacy. Problem List - post herpetic neuralgia left scalp - Hypertension - Hypothyroidism - Gastroesophageal Reflux Disease (GERD) - Chronic Obstructive Pulmonary Disease (COPD) - Vitamin D deficiency - she has noticed a raised area on the right side of scalp On examination it seems to be discolored mole that need to be evaluated by Dermatology - depression stable, taking Lexapro Patient Instructions - Schedule an appointment with a chinchilla machine operator for the scalp bump. - Contact the ear, nose, and throat specialist if no response is received. - Get the shingles vaccine once symptoms have subsided. - Check vaccination records at the pharmacy and consider getting the pneumonia vaccine. - Follow up in three months to ensure return to baseline health. - continue medications
[2024-08-03 08:40] VITALS: BP 126/60; PULSE 84; RESP 15; TEMP 37.1; O2SAT 95; BMI 25.2
--- OUTSIDE RECORDS SUMMARY | 2024-08-03 08:51 | XMS_ITS | Data Portability ---
Author Organization [place] [facility] Address [address] [place] [id number] Care Team Providers Care Building Maintenance Supervisor Name Role Phone SERENA MERRITT Primary Care Provider [phone] Assessment Encounter Date Assessment Date Assessment LastModified by Organization Details LastModified Time 08/22/2019 08/22/2019 Overview/History :T is a 59-year-old female that had recent hip replacement surgery at [facility]. Her roommate during that hospitalization eventually ended up being swabbed and was found to be positive for COVID 19. She has not had any symptoms concerning for COVID-19, no fevers or chills, no respiratory symptoms or GI symptoms. Upon her discharge from the hospital she was instructed to contact [facility] in 1 week's time for COVID testing. [...] today. Time On Scene with Patient: 00:32:06 [email or web address] Not available 08/22/2019 16:53:16 Plan of Treatment Reminders Order Date Submit Date Provider Last Modified By Organization Details Last Modified Time Details Appointments None recorded. Lab SARS CoV 2 RNA (COVID-19), QL, data warehouse manager-PCR, respiratory specimen 2019 020 SHERLYN [facility] (Centralized Electronic Ordering - All Locations), Patient Can Go To The Location Of Their Choice, [id number] 14:06:10 Referral None recorded. Procedures None [...] from COVID-19 illness. Know how it spreads There is currently no vaccine to prevent coronavirus disease 2019 (COVID-19). The best way to prevent illness is to avoid being exposed to this virus. The virus is thought to spread mainly from tbdnjz-fj-hiazka. o Between people who are in close [...] not showing symptoms. Wash your hands often Wash your hands often with soap and water for at least 20 seconds especially after you have been in a public place, or after blowing your nose, coughing, or sneezing. If soap and water are not readily available, use a hand pastry cook apprentice that contains at least 60% alcohol. Cover all surfaces of your hands and rub them together until they feel dry. Avoid touching your eyes, nose, and mouth with unwashed hands. Avoid close contact Avoid close contact with people who are sick, even inside your home. If possible, maintain 6 feet between the person who is sick and other household members. Put distance between yourself and other people outside of your home. o Remember that some people without symptoms may be able to spread virus. o Stay at least 6 feet (about 2 arms length) from other people. o Do not gather in groups. o Stay out of crowded places and avoid mass gatherings. o Keeping distance from others is especially important for people who are at higher risk of getting very sick. Cover your mouth and nose with a cloth face cover when around others You could spread COVID-19 to others even if you do not feel sick. Everyone should wear a cloth face cover when they have to go out in public, for example to the grocery store or to pick and shovel worker other necessities. o Cloth face coverings should not be placed on young children under age 2, anyone who has trouble breathing, or is unconscious, incapacitated or otherwise unable to remove the mask without assistance. The cloth face cover is meant to protect other people in case you are infected. Do NOT use a facemask meant for a healthcare worker. Continue to keep about 6 feet between yourself and others. The cloth face cover is not a substitute for social distancing. Cover coughs and sneezes If you are in a private setting and do not have on your cloth face covering, remember to always cover your mouth and nose with a tissue when you cough or sneeze or use the inside of your elbow. Throw used tissues in the trash. Immediately wash your hands with soap and water for at least 20 seconds. If soap and water are not readily available, clean your hands with a hand pastry cook apprentice that contains at least 60% alcohol. Clean and disinfect Clean AND disinfect frequently touched surfaces daily. This includes tables, doorknobs, light switches, countertops, handles, desks, phones, keyboards, toilets, faucets, and sinks. If surfaces are dirty, clean them. Use detergent or soap and water prior to disinfection. Then, use a household disinfectant. Most common EPA-registered household disinfectants will work. Monitor Your Health Be alert for symptoms. Watch for fever, cough, shortness of breath, or other symptoms of COVID-19. o Especially important if you are running essential errands, going into the office or workplace, and in settings where it may be difficult to keep a physical distance of 6 feet. Take your temperature if symptoms develop. o Don t take your temperature within 30 minutes of exercising or after taking medications that could lower your temperature, like acetaminophen. Follow CDC guidance if symptoms develop. [email or web address] Not available 08/22/2019 16:24:47 Reason for Referral None Reported. Results Created Date Observation Date Name Description Value Unit Range Abnormal Flag Note LastModifiedBy Organization Detail LastModifiedTime 08/22/1908/23/2019 SARS CoV 2 RNA (COVI D-19) , QL, data warehouse manager-P CR, respi rator y speci men covid-19 PCR overall result (neg) normal NEGAT BINDU 2018- novel Coron aviru s (2018nCoV ) not detec aracelis by real- time RT-PC R. Note: If clini tan suspi cion for COVID -19 is high, natasha nue to maint ain preca ution s and consi wandy repea t testi ng. Resul t repor aracelis to [facility]. To preve nt error s in diagn [...] FDA under an Emerg ency Use Autho rizat ion (EUA) for use by autho rized labor atori es. Testi ng perfo rmed by real time PCR utili [facility] FELICIANO [employer] SARS- CoV-2 test. Not Available [facility] (Centralized Electronic Ordering - All Locations) Patient Can Go To The Location Of Their Choice, [id number] 08/23/2019 14:06:10 Result Notes None recorded. Procedures Surgical History Date Name Laterality Status Provider Name and Address Organization Details Recorded Time 08/22/19 20 Medication Review completed STARLA MEDEIROS NP [address], [place], [address], [place] [facility] 08/22/2019 16:50:10 Imaging Results None recorded. Procedure Notes None recorded. Medical Equipment None Reported. Allergies Allergen ID Allergen Name Allergen Category Reaction Reaction Severity Criticality Documentation Date Start Date Code Code System Note Provider Name and Address Organization Details Recorded Time 800804 phenobarb ital medicatio n Not available Not available Not available 08/22/2019 8134 RxNorm STARLA MEDEIROS NP [address], [place], [address], [place] [facility] 0 15:58:18 Medications [...] [degF] 164 mm[Hg] 86 mm[Hg] Not Available [facility] 0 16:17:21 Social History Question Answer Notes LastModified by Organizat ion Details LastModified Time Tobacco Smoking Status Former Smoker STARLA MEDEIROS NP [address] [place], [address], [place] [facility] 08/22/2019 16:01:21 Do You Have An Advance Directive? No [email or web address] Information not available 08/22/2019 What Is Your Code Status? Full Code [email or web address] Information not available 08/22/2019 Sex: Unknown Functional Status None recorded. Mental Status None recorded. Family History Relationship Description Onset Age of this Age Resolved Age Notes LastModified by Organization Details LastModified Time Mother Malignant neoplastic disease [email or web address] Not available 16:02:12 Medical History Condition Response Diabetes N Coronary Artery Disease N High Cholesterol N Pulmonary Embolism N Cancer Y Hypertension Y Stroke N Asthma N COPD N Kidney Disease N Gynecological HistoryNo gynecological history recorded. Obstetrics History GPAL:G 0 P 0 0 0 0 Past Encounters Encounter ID Performer Location Encounter Start Date Encounter Closed Date Diagnosis/Indication Diagnosis SNOMED-CT Code Diagnosis ICD10 Code Diagnosis Note [id number] ST[facility] [address] [place] [address] 08/22/2019 15:56:16 08/23/2019 17:49:58 Exposure to communicable disease 740821643 Z20.828 Health Concerns Section Related Observation LastModified by Organization Detai ls LastModified Time None Recorded Concern Status LastModified by Organization Details LastModified Time None Recorded Advance Directives Directive N: Payers Insurance Date Sequence Insurance Name Policy Number Policy Galvan Covered Member ID Galvan Member ID Guarantor Name 08/22/2019 1 [facility] [id number] Erica Chavez [id number] Erica Chavez 08/22/2019 1 *SELF PAY* Erica Chavez [id number] Erica Chavez 08/22/2019 2 [place] [facility] Erica Chavez [id number] Erica Chavez Notes Date Note Type Note Provider Name and Address Organization Details Recorded Time 08/22/2019 text/html This is a 59-year-old female that is a new patient [facility]. She has a medical history significant for history of cervical and colorectal cancer, hypertension and osteoarthritis. She recently had hip replacement surgery at [facility] last week. She tells me that she had COVID testing prior to her scheduled surgery as a condition of her surgery. While recovering in the hospital her roommate ended up being tested and was positive for COVID 19. She last had contact with this room mate last Thursday. When being discharged from the hospital she was given the information of [facility] and told to contact us in 1 week for asymptomatic testing. The patient is denying any fevers or chills, no GI or respiratory symptoms. STARLA MEDEIROS NP [address], [place], [address], [place] - [facility] 08/22/2019 16:53:26 OBGyn Episode No OBEpisode recorded.
== END 2024-08-03 09:01 | disposition home or self-care (01) ==
LOC: HO.HMCC 08:32
PROVIDERS: PCP Internal Medicine; Visit Provider Internal Medicine
DX: I10 Essential (primary) hypertension (principal); F32.1 Major depressive disorder, single episode, moderate; J44.9 Chronic obstructive pulmonary disease, unspecified; E03.8 Other specified hypothyroidism; K21.9 Gastro-esophageal reflux disease without esophagitis; E55.9 Vitamin D deficiency, unspecified; B02.29 Other postherpetic nervous system involvement

== ENCOUNTER → 2024-08-03 08:32 | Outpatient (BNVA) | payer MEDICARE, SELFPAY | PROVIDERS: PCP Internal Medicine; Visit Provider Internal Medicine | DX: I10 Essential (primary) hypertension (principal); K21.9 Gastro-esophageal reflux disease without esophagitis; J44.9 Chronic obstructive pulmonary disease, unspecified; E55.9 Vitamin D deficiency, unspecified; F32.1 Major depressive disorder, single episode, moderate; E03.8 Other specified hypothyroidism; B02.29 Other postherpetic nervous system involvement | CPT/HCPCS: 99212 ==

== ENCOUNTER 2024-11-02 08:40 | Outpatient (REF) | payer MEDICARE, SELFPAY | END 2024-11-02 08:41 | disposition home or self-care (01) | LOC: HO.HMGCLDS 08:40 | PROVIDERS: PCP Internal Medicine; Visit Provider Internal Medicine | DX: B02.29 Other postherpetic nervous system involvement (principal); G47.9 Sleep disorder, unspecified; J44.9 Chronic obstructive pulmonary disease, unspecified; R43.9 Unspecified disturbances of smell and taste; I10 Essential (primary) hypertension; F32.1 Major depressive disorder, single episode, moderate; E03.8 Other specified hypothyroidism; E55.9 Vitamin D deficiency, unspecified; K21.9 Gastro-esophageal reflux disease without esophagitis; Z72.0 Tobacco use | CPT/HCPCS: 96127; 99212 ==

== ENCOUNTER 2024-11-02 08:40 | Outpatient (AMB) | payer MEDICARE, SELFPAY ==
[2024-11-02 08:42] VITALS: BP 156/80; PULSE 86; TEMP 36.9; O2SAT 97; BMI 25.0
--- NOTE | 2024-11-02 08:42 | A.OFFPC_ITS ---
Vital Signs 11/02/24 08:42 Height 5 ft 6 in Weight 155 lb BMI 25.0 BP 156/80 H Blood Pressure Location Lt brachial Position Sitting Pulse 86 Pulse Source Pulse Oximeter Temp 98.4 F Temp Source Oral Pulse Oximetry (%) 97 Oxygen Delivery Method Room Air Intake Visit Reasons: 3 months f/up Cleat Maker Required: No Accompanied by: Self / Same As Patient Allergies phenobarbital (PHENOBARBITAL) Allergy (Unknown, Verified 11/02/24 08:42) RASH, hives, rash Medication List - Last Reconciled 11/02/24 by Mukund Hinton MD albuterol sulfate 90 mcg/actuation 2 puffs inhalation Q6H PRN 30 days cholecalciferol (vitamin D3) 25 mcg PO DAILY 90 days escitalopram oxalate (Lexapro) 10 mg PO DAILY fluticasone furoate-vilanterol 200-25 mcg/dose (Breo Ellipta) 1 inh inhalation DAILY 90 days gabapentin 300 mg PO BID PRN ibuprofen 200 mg PO Q6H PRN ipratropium-albuterol 0.5 mg-3 mg(2.5 mg base)/3 mL 3 mL inhalation Q6-8H PRN 30 days levothyroxine 125 mcg PO DAILY 90 days lisinopril 30 mg PO DAILY 90 days omeprazole 20 mg PO DAILY oxycodone-acetaminophen 5-325 mg (Percocet) 1 tab PO BID PRN 30 days umeclidinium 62.5 mcg/actuation (Incruse Ellipta) 1 inh inhalation BEDTIME [Updraft machine Use every 6 hrs as needed for shortness of breath/difficulty breathing ] Tobacco use date assessed: 08/03/24 Fall risk assessment: No Falls in past year Last assessed Fall Risk: 11/02/24 Dental Screening Dental Screen Date: 08/03/24 HPI 3 months f/up HPI Details History The patient is a 64-year-old female presenting with a regular follow-up appointment for chest congestion and taste abnormality. Chest Congestion: - The patient reported a recent onset of chest congestion with wheezing and a productive cough producing riddle phlegm. - Symptoms began after attending a day green party for her granddaughter, where multiple attendees became ill. - She experienced severe wheezing on Thu day, which has since improved. - The patient denies any fever. - Symptoms are described as viral in krista ure. Started to feel better yesterday Persistent Shingles Pain: - The patient experiences pain on the le ft side, believed to be associated with a previous shingles infection. - The pain has started again since the v iral infection started - Pain is described as consistent with t he location of earlier shingles infection. Taste Abnormality: - The patient experiences a persistent s alty taste in the mouth. - Describes the taste as resembling [place]. - Symptom has been present for months. - The patient associates the abnormal ta mae with inadequate water intake and tobacco usage. - Medications are suspected as possible contributing factors but unspecified. Medical History: - Anxiety and Depression, managed with L exapro. - Asthma, managed with Breo Ellipta and ipratropium/albuterol as needed. - Hypothyroidism, managed with Levothyro xine. - Hypertension, managed with Lisinopril. - Gastroesophageal Reflux Disease (GERD) , managed with Omeprazole. - Nicotine Dependence. - Chronic Obstructive Pulmonary Disease (COPD). - Chronic GERD. - Depression. - Hypothyroidism. - Hypertension. Medications: - Lexapro 10 mg for anxiety and depressi on. - Breo Ellipta for asthma. - Ipratropium/Albuterol (Updraft) as nee ded for asthma. - Levothyroxine 125 mg for hypothyroidis m. - Lisinopril 30 mg for hypertension. - Omeprazole 20 mg for GERD. - Vitamin D supplement (due to low Vitam in D levels). Social History: - Smoking status: Currently smokes a lit tle. - Hydration status: Reports inadequate w ater intake. - Family: Recently attended a birthday [place] for [id number] granddaughter. Problem List - Anxiety - Depression - Asthma - Hypothyroidism - Hypertension - Gastroesophageal Reflux Disease (GERD) - Nicotine Dependence - Chronic Obstructive Pulmonary Disease (COPD) Diagnostic results - Labs in March: - Normal white count and hemoglobin - Normal electrolytes - Stable kidney functions - Normal liver enzymes - LDL 114 - Vitamin D low - TSH 0.79 Patient Instructions - Increase water intake to improve taste issues. - Use Prednisone as discussed for chest inflammation. And also post herpetic neuralgia, few tablets of Percocet sent as well to be taken at night as needed - Continue taking Vitamin D supplement. - Monitor symptoms and report any change s or persistence. - Follow lab instructions given. Follow-up 3 months Review of Systems General: No fever no chills neurological: No headaches no dizziness ear nose throat: No sore throat no hearing difficulty cardiovascular: No syncope, no chest pain, no palpitations gastrointestinal: No nausea vomiting or diarrhea Physical Exam general: No acute distress HEENT: No acute findings, ear exam within normal limit neck: Supple respiratory system: Able to talk in full sentences, audible wheeze noted, no stridor cardiovascular: S1-S2 RRR gastrointestinal: No pain extremities: No new findings PRACTICE PHYSICIAN: Alert awake oriented x3 motor sensory intact skin: Normal turgor [facility] Medical History Otomycosis of left ear Acute pharyngitis Oral thrush COPD (chronic obstructive pulmonary disease) Hypertension, essential Surgical History History of left hip replacement History of ileostomy History of resection of rectum History of surgery Ovarian mass, left History of total hysterectomy Family History Father No problems noted. Mother Lymphoma Sister No problems noted. Sister No problems noted. Son No problems noted. Daughter No problems noted. Daughter No problems noted. Other Substance use disorder Social History Housing: Other (mobile home) Patient Tobacco Use Status: Current someday Tobacco user Cigarette Packs Per Day: 0.5 e-Cigarette/Vaping Use: Never Used service: No Current occupational status: retired Cognitive needs: No Hearing needs: No Vision needs: Yes Questionnaire PHQ-9 Over the last 2 weeks, how often have you been bothered by any of the following problems? 1. Little interest or pleasure in doing things: not at all 2. Feeling down, depressed, or hopeless: not at all 3. Trouble falling or staying asleep, or sleeping too much: not at all 4. Feeling tired or having little energy: not at all 5. Poor appetite or overeating: not at all 6. Feeling bad about yourself - or that you are a failure or have let yourself or your family down: not at all 7. Trouble concentrating on things, such as reading the newspaper or watching television: not at all 8. Moving or speaking so slowly that other people could have noticed. Or the opposite - being so fidgety or restless that you have been moving around a lot more than usual: not at all 9. Thoughts that you would be better off or of hurting yourself in some way: not at all Total score: 0 Depression Screening Interpretation: Negative Depression Screening Done: Yes 69776 - PHQ-9 Billing: Yes Source: Developed by Drs. Cory Ochoa, Diya Alicia, Virgil Lion and colleagues, with an educational ara from [employer]. Thrive Questionnaire Date Thrive assessed: 04/05/24 I am a: Patient What is your living situation today?: I have a steady place to live Within the past 12 months, did the food you bought not last and you didn't have the money to get more?: Never true Within the past 12 months, did you worry whether your food would run out before you got money to buy more?: Never true Do you have trouble paying for medicines?: No Do you have trouble getting transportation to medical appointments?: Yes Do you have trouble paying your heating and electricity bill?: No Do you have trouble taking care of your child, family member or friend?: No Do you have trouble with day-to-day activities such as bathing, preparing meals, shopping, managing finances, etc.?: No Are you currently unemployed and looking for a job?: No Are you interested in more education?: No Please select the resources that you would like help with: None Currently or been in a relationship where the following occur: No concerns reported THRIVE Score: 1 AUDIT C Alcohol Use Questionnaire (AUDIT-C) 1. How often do you have a drink containing alcohol?: Monthly or less 2. How many drinks containing alcohol do you have on a typical day when you are drinking?: 1 or 2 3. How often do you have six or more drinks on one occasion?: Never Total Score: 1 ADAM-7 AMB Questionnaire ADAM-7 Date ADAM - 7 assessed: 05/05/24 Feeling nervous, anxious, or on edge: 2 = More than half the days Not being able to stop or control worryin = Several days Worrying too much about different things: 2 = More than half the days Trouble relaxin = Not at all Being so restless that it is hard to sit still: 0 = Not at all Becoming easily annoyed or irritable: 1 = Several days Feeling afraid as if something awful might happen: 2 = More than half the days Total ADAM-7 score (0-4 normal; 5-9 mild; 10-14 moderate; 15-21 severe): 8 Source: Developed by Drs. Cory Ochoa, Diya Alicia, Virgil Lion and colleagues, with an educational ara from [employer]. ADAM-7 Assessment Billing ADAM-7 Assessment Tool: ADAM-7 Assessment 11329 Physical exam (Primary Care) Vital Signs: Last Vital Signs Temp 98.4 F 11/02/24 08:42 Pulse 86 11/02/24 08:42 BP 156/80 H 11/02/24 08:42 Pulse Ox 97 11/02/24 08:42 Oxygen Delivery Method Room Air 11/02/24 08:42 BMI result Body Mass Index 25.0 Tobacco/Smoking Status: Tobacco use Status Tobacco use date assessed 08/03/24 11/02/24 08:43 Patient Tobacco Use Status Current someday Tobacco 11/02/24 08:43 e-Cigarette/Vaping Use Never Used 11/02/24 08:43 PHQ-9: PHQ-9 Score PHQ-9: Total score 0 11/02/24 09:06 Depression Screening Interpretation: Negative Thrive Assessment: Date of Thrive Assessment Date Thrive assessed 04/05/24 11/02/24 08:43 Currently or been in a relationship where the following occur: No concerns reported Coding Level of Care Code Est Pt Level 5 (17619) Diagnoses Post herpetic neuralgia B02.29 Difficulty sleeping G47.9 Chronic obstructive pulmonary disease, unspecified COPD type J44.9 COPD type: unspecified COPD Taste disorder R43.9 Hypertension, essential I10 Depression, major, single episode, moderate F32.1 Other specified hypothyroidism E03.8 Vitamin D deficiency E55.9 Chronic GERD K21.9 Tobacco abuse Z72.0 Additional Codes PHQ-9 - 87475 - PHQ-9 Billing: Yes ([id number]) ADAM-7 Assessment Billing - ADAM-7 Assessment Tool: ADAM-7 Assessment 85524 ([id number]) Time Spent (min) 40 Comment reviewing records, exam, counseling for post herpetic neuralgia exacerbation, coordinatio Assessment & Plan Assessment & Plan (1) Post herpetic neuralgia: Code(s): B02.29 - Other postherpetic nervous system involvement Category: Medical (2) Difficulty sleeping: Code(s): G47.9 - Sleep disorder, unspecified Category: Medical (3) COPD (chronic obstructive pulmonary disease): Code(s): J44.9 - Chronic obstructive pulmonary disease, unspecified Category: Medical Qualifiers: COPD type: unspecified COPD Qualified Code(s): J44.9 - Chronic obstructive pulmonary disease, unspecified (4) Taste disorder: Code(s): R43.9 - Unspecified disturbances of smell and taste Category: Medical (5) Hypertension, essential: Code(s): I10 - Essential (primary) hypertension Category: Medical (6) Depression, major, single episode, moderate: Code(s): F32.1 - Major depressive disorder, single episode, moderate Category: Medical (7) Other specified hypothyroidism: Code(s): E03.8 - Other specified hypothyroidism Category: Medical (8) Vitamin D deficiency: Code(s): E55.9 - Vitamin D deficiency, unspecified Category: Medical (9) Chronic GERD: Code(s): K21.9 - Gastro-esophageal reflux disease without esophagitis Category: Medical (10) Tobacco abuse: Code(s): Z72.0 - Tobacco use Category: Medical Plan History The patient is a 64-year-old female presenting with a regular follow-up appointment for chest congestion and taste abnormality. Chest Congestion: - The patient reported a recent onset of chest congestion with wheezing and a productive cough producing riddle phlegm. - Symptoms began after attending a birthday green party for her granddaughter, where multiple attendees became ill. - She experienced severe wheezing on Thursday, which has since improved. - The patient denies any fever. - Symptoms are described as viral in nature. Started to feel better yesterday Persistent Shingles Pain: - The patient experiences pain on the left side, believed to be associated with a previous shingles infection. - The pain has started again since the viral infection started - Pain is described as consistent with the location of earlier shingles infection. Taste Abnormality: - The patient experiences a persistent salty taste in the mouth. - Describes the taste as resembling ocean water. - Symptom has been present for months. - The patient associates the abnormal taste with inadequate water intake and tobacco usage. - Medications are suspected as possible contributing factors but unspecified. Medical History: - Anxiety and Depression, managed with Lexapro. - Asthma, managed with Breo Ellipta and ipratropium/albuterol as needed. - Hypothyroidism, managed with Levothyroxine. - Hypertension, managed with Lisinopril. - Gastroesophageal Reflux Disease (GERD), managed with Omeprazole. - Nicotine Dependence. - Chronic Obstructive Pulmonary Disease (COPD). - Chronic GERD. - Depression. - Hypothyroidism. - Hypertension. Medications: - Lexapro 10 mg for anxiety and depression. - Breo Ellipta for asthma. - Ipratropium/Albuterol (Updraft) as needed for asthma. - Levothyroxine 125 mg for hypothyroidism. - Lisinopril 30 mg for hypertension. - Omeprazole 20 mg for GERD. - Vitamin D supplement (due to low Vitamin D levels). Social History: - Smoking status: Currently smokes a little. - Hydration status: Reports inadequate water intake. - Family: Recently attended a birthday green party for [id number] granddaughter. Problem List - Anxiety - Depression - Asthma - Hypothyroidism - Hypertension - Gastroesophageal Reflux Disease (GERD) - Nicotine Dependence - Chronic Obstructive Pulmonary Disease (COPD) Diagnostic results - Labs in March: - Normal white count and hemoglobin - Normal electrolytes - Stable kidney functions - Normal liver enzymes - LDL 114 - Vitamin D low - TSH 0.79 Patient Instructions - Increase water intake to improve taste issues. - start Prednisone as discussed for chest inflammation. For Exacerbation of post herpetic neuralgia, few tablets of Percocet sent as well to be taken at night as needed - Continue taking Vitamin D supplement. - Monitor symptoms and report any changes or persistence. - Follow lab instructions given. Follow-up 3 months Orders: Orders Complete Blood Count Auto Diff Today B02.29 - Other postherpetic nervous system involvement, E03.8 - Other specified hypothyroidism, E55.9 - Vitamin D deficiency, unspecified, F32.1 - Major depressive disorder, single episode, moderate, G47.9 - Sleep disorder, unspecified, I10 - Essential (primary) hypertension, J44.9 - Chronic obstructive pulmonary disease, unspecified, K21.9 - Gastro-esophageal reflux disease without esophagitis, Z72.0 - Tobacco use Comprehensive [place]. Panel Fast Today B02.29 - Other postherpetic nervous system involvement, E03.8 - Other specified hypothyroidism, E55.9 - Vitamin D deficiency, unspecified, F32.1 - Major depressive disorder, single episode, moderate, G47.9 - Sleep disorder, unspecified, I10 - Essential (primary) hypertension, J44.9 - Chronic obstructive pulmonary disease, unspecified, K21.9 - Gastro-esophageal reflux disease without esophagitis, Z72.0 - Tobacco use TSH reflex Free T4 Today B02.29 - Other postherpetic nervous system involvement, E03.8 - Other specified hypothyroidism, E55.9 - Vitamin D deficiency, unspecified, F32.1 - Major depressive disorder, single episode, moderate, G47.9 - Sleep disorder, unspecified, I10 - Essential (primary) hypertension, J44.9 - Chronic obstructive pulmonary disease, unspecified, K21.9 - Gastro-esophageal reflux disease without esophagitis, Z72.0 - Tobacco use UA CC w/rflx Micro + Cult Today I10 - Essential (primary) hypertension, R43.9 - Unspecified disturbances of smell and taste Lipid Panel Today B02.29 - Other postherpetic nervous system involvement, E03.8 - Other specified hypothyroidism, E55.9 - Vitamin D deficiency, unspecified, F32.1 - Major depressive disorder, single episode, moderate, G47.9 - Sleep disorder, unspecified, I10 - Essential (primary) hypertension, J44.9 - Chronic obstructive pulmonary disease, unspecified, K21.9 - Gastro-esophageal reflux disease without esophagitis, Z72.0 - Tobacco use Vitamin D 25-OH (D2 and D3) Today B02.29 - Other postherpetic nervous system involvement, E03.8 - Other specified hypothyroidism, E55.9 - Vitamin D deficiency, unspecified, F32.1 - Major depressive disorder, single episode, moderate, G47.9 - Sleep disorder, unspecified, I10 - Essential (primary) hypertension, J44.9 - Chronic obstructive pulmonary disease, unspecified, K21.9 - Gastro-esophageal reflux disease without esophagitis, Z72.0 - Tobacco use Medications: New prednisone 20 mg PO DAILY 5 tabs 0RF 5 days Changed From oxycodone-acetaminophen 5-325 mg (Percocet) Partial Fill upon patient request. do not combine with other sedating medication. do not drive or do safety sensitive duties for 8 hours after taking 1 tab PO BID PRN 60 tabs 0RF acute severe pain post herpetic neuralgia 30 days To oxycodone-acetaminophen 5-325 mg (Percocet) Partial Fill upon patient request. do not combine with other sedating medication. do not drive or do safety sensitive duties for 8 hours after taking 1 tab PO .qhs PRN 7 tabs 0RF acute severe pain post herpetic neuralgia 7 days Refilled albuterol sulfate 90 mcg/actuation 2 puffs inhalation Q6H PRN 8.5 grams 0RF bronchospasm 30 days fluticasone furoate-vilanterol 200-25 mcg/dose (Breo Ellipta) 1 inh inhalation DAILY 3 multiple units 1RF 90 days
--- OUTSIDE RECORDS SUMMARY | 2024-11-02 09:46 | XMS_ITS | Patient Health Record ---
Author Organization [facility] Address [address] [place] [id number] Care Team Providers Care Furnace Erector Name Role Phone Katia IQBAL, Ora Primary Care Provider U Shahid Aggarwal Jr Unavailable Allergies Allergen (clinical drug ingredient) Drug/Non Drug Allergy documented on EMR Reaction Allergy Type Onset Date Status phenobarbital Phenobarbital Unknown Drug Allergy Active Reason For Referral No Information Medications Medication SIG (Take, Route, Fr equency, Duration) Notes Start Date End Date Status Wellbutrin Active Levoxyl Active Anusol-HC 25 MG 1 suppository Rectal Once a day for 14 day(s) 06/09/2012 Active Problems Problem Type SNOMED Code ICD Code Onset Dates Problem Status W/U Status Risk Notes Problem Rectal bleeding (18884151) Rectal bleeding (569.3) Active confirmed Problem Malignant neoplasm of colon (691324387) Adenocarcinoma of colon (153.9) Active confirmed Plan Of Treatment Future Test Test Name Order Date COLONOSCOPY 06/09/2012 Insurance Providers Payer Name Payer Address Payer Phone Subscriber Number Group Number Insured Name Patient Relationship to Insured Coverage Start Date Coverage End Date [employer] [address] [place] [address] [phone] [id number] MAURO SEYMOUR Self - patient is the insured Medical (General) History Medical History History ICD Code Cervical cancer Hypothyroid Depression Surgical History Surgery Date(Month/Year) Hysterectomy
== END 2024-11-02 09:03 | disposition home or self-care (01) ==
LOC: HO.HMCC 08:41
PROVIDERS: PCP Internal Medicine; Visit Provider Internal Medicine
DX: J44.9 Chronic obstructive pulmonary disease, unspecified (principal); B02.29 Other postherpetic nervous system involvement; F32.1 Major depressive disorder, single episode, moderate; G47.9 Sleep disorder, unspecified; R43.9 Unspecified disturbances of smell and taste; I10 Essential (primary) hypertension; E03.8 Other specified hypothyroidism; E55.9 Vitamin D deficiency, unspecified; K21.9 Gastro-esophageal reflux disease without esophagitis; Z72.0 Tobacco use